=== PATIENT | female | born 2000 | race Caucasian/White ===

== ENCOUNTER 2022-02-25 14:30 | Emergency (ER) | payer BC, SELFPAY ==
[2022-02-25] VITALS (15 sets, daily range): BP systolic 99–133; BP diastolic 51–91; PULSE 56–78; RESP 16; TEMP 36.7; O2SAT 97–100; BMI 25.7
--- NOTE | 2022-02-25 | CRLHL7_ITS ---
For Patients: As a result of the Century Cures Act, medical imaging exams and procedure reports are released immediately into your electronic medical record. You may view this report before your referring provider. If you have questions, please contact your health care provider. INDICATION: Trauma, headache, visual changes TECHNIQUE: CT head without contrast. COMPARISON: Type FINDINGS: CSF spaces: Within normal limits for age. Brain parenchyma: The gao-white differentiation is normal. No sign of mass, hemorrhage, or midline shift. Skull base and calvarium: The visualized paranasal sinuses and mastoid air cells demonstrate no acute or significant findings. The visualized orbits are grossly unremarkable. No skull fractures. IMPRESSION: Unremarkable noncontrast head CT. Dictated by Toribio Watson MD @ 02/25/2022 3:12:54 PM Please note that all CT scans at this facility use dose modulation, iterative reconstruction, and/or weight-based dosing when appropriate to reduce radiation dose to as low as reasonably achievable. Dictated by: Toribio Watson MD @ 02/25/2022 15:13:00 (Electronically Signed)
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
[2022-02-25 15:28] LABS: Eosinophils Absolute Auto 0.14 K/uL (0.00-0.50); Eosinophils Percent Auto 2.5 % (0.0-7.0); Hematocrit 41.1 % (33.0-51.0); Hemoglobin* 14.2 gm/dL (12.0-16.0); Immature Granulocytes Abs Auto 0.01 K/uL (0.00-0.30); Immature Granulocytes Pct Auto 0.2 %; Lymphocytes Absolute Auto 1.81 K/uL (0.90-2.90); Lymphocytes Percent Auto 32.6 % (20-44); Mean Corpuscular HGB Conc 35 gm/dL (32-36); Mean Corpuscular Hemoglobin 31 pg (26-34); Mean Corpuscular Volume 89 fL (80-100); Monocytes Percent Auto 10.1 % (0.0-11.0); Neutrophils Absolute Auto 3.03 K/uL (1.7-7.0); Neutrophils Percent Auto 54.6 % (42.0-72.0); Platelet Count* 304 K/uL (140-440); RDW Coefficient of Variation % 12.3 % (11.5-15.5); Red Blood Count 4.64 m/uL (4.00-5.20); White Blood Count* 5.55 K/uL (4.50-11.00)
[2022-02-25 15:30] LABS: Slide Review Reflex No
[2022-02-25 15:38] LABS: Chloride* 108 mmol/L (96-114)
[2022-02-25 15:39] LABS: Potassium* 3.9 mmol/L (3.6-5.1); Sodium* 138 mmol/L (135-149)
[2022-02-25 15:41] LABS: Creatinine* 0.6 mg/dL (0.5-1.5); Estimated Glomerular Filt Rate 130 ml/min
[2022-02-25 15:42] LABS: Blood Urea Nitrogen* 9 mg/dL (5-24); Carbon Dioxide* 24 mmol/L (20-32); Glucose* 81 mg/dL (60-115)
[2022-02-25 17:18] LABS: INR 1.04 (0.91-1.10); Prothrombin Time 14.2 Seconds
== END 2022-02-25 18:13 | disposition home or self-care (01) ==
PROVIDERS: Emergency Provider Emergency Medicine Emergency Medical Services; PCP Family Medicine
DX: S06.0X0A Concussion without loss of consciousness, initial encounter (principal); H57.04 Mydriasis; W51.XXXA Accidental striking against or bumped into by another person, initial encounter
CPT/HCPCS: 36415; 70450; 80048; 85025; 85610; 99284; 99285

== ENCOUNTER 2022-06-20 20:51 | Emergency (ER) | payer SELFPAY ==
[2022-06-20 20:57] VITALS: BP 117/69; PULSE 84; RESP 16; TEMP 37.2; O2SAT 97; BMI 25.7
--- NOTE | 2022-06-20 21:11 | ED_ITS ---
HPI - Animal Bite General Chief Complaint: Animal Bite Stated Complaint: Dog bite History of Present Illness HPI narrative: This 21-year-old female comes in for evaluation of a dog bite that occurred just prior to arrival. She states that she was just walking past a property when the dog busted out of its place and came to attack her. She has a small laceration on her right little finger and a larger abrasion that is not a full-thickness injury on her left buttock. She states that she is unsure of her own tetanus status and wishes to have a vaccination today. She did make a report to the police who are researching regarding the vaccine status of the dog involved. Related Data Previous Rx's Medication Instructions Recorded ketorolac 10 mg tablet 10 mg PO TID 5 days #15 tabs 02/25/22 Allergies Allergy/AdvReac Type Severity Reaction Status Date / Time No Known Drug Allergies Allergy Verified 06/20/22 21:01 Review of Systems 2 Status of ROS: Reports: 10 or more systems reviewed and unremarkable except as noted in History and below Narrative: Constitutional: No fevers, no weight gain or loss. Eyes: No discharge. No vision changes. HENT: No congestion, no sore throat, no ear pain. Cardiovascular: No chest pain, no palpitations. Respiratory: No shortness of breath, no wheezes, no cough. Gastrointestinal: No abdominal pain, no vomiting, no diarrhea. Genitourinary: No dysuria, no hematuria. Musculoskeletal: Normal range of motion. Skin: No rashes, no pruritis. Dog bite injuries as described above. Neurological: No dizziness, weakness, sensory change, speech change. Endo/Heme/Allergies: No bruising or bleeding. No polydipsia. Pysch: no suicidality, no anxiety, no insomnia. All other systems reviewed and are negative. [facility] Social History Smoking Status: Current every day smoker What tobacco products do you use: cigarettes Do you use any of these nicotine containing products: Vaping Products Second hand tobacco smoke exposure: No How often do you have a drink containing alcohol: never How often do you have six or more drinks on one occasion: Never AUDIT-C Alcohol total score: 0 Non-prescribed substance use: denies use service: No Exam Narrative: Exam Narrative: This 21-year-old female comes in with injuries from a dog bite. Her wounds on her left buttock are not full thickness and there is no repair that is indicated. She does have a small laceration on her right middle finger that is full thickness but again does not need any repair. These wounds were cleansed and bandaged. She did receive a tetanus vaccination. I did prescribe a short course of Keflex out of caution for possible secondary infection from this bite. Regarding the dog's vaccination status I advised the patient to acquire information through the police as she is already made a report. If the dog is not vaccinated it can be tested or observed regarding rabies. If there is uncertainty in this regard she understands that she can return here for rabies immunoglobulin and vaccination. Const: Vital Signs, click to edit/add: Vital Signs - 24 hr 06/20/22 20:57 Temperature 98.9 F Pulse Rate [Pulse Oximeter] 84 Respiratory Rate 16 Blood Pressure [Ri ght Upper Arm] 117/69 Pulse Oximetry 97 Oxygen Delivery Me thod Room Air Course Vital Signs Vital signs: Initial Vital Signs Temperature 98.9 F 06/20/22 20:57 Temperature Source Temporal Artery Scan 06/20/22 20:57 Pulse Rate 84 06/20/22 20:57 Pulse Rhythm Regular 06/20/22 20:57 Pulse Strength 3+ Normal 06/20/22 20:57 Respiratory Rate 16 06/20/22 20:57 Blood Pressure 117/69 06/20/22 20:57 Blood Pressure Mean 85 06/20/22 20:57 Blood Pressure Position Sitting 06/20/22 20:57 Pulse Oximetry 97 06/20/22 20:57 Oxygen Delivery Method Room Air 06/20/22 20:57 Vital Signs Temperature 98.9 F 06/20/22 20:57 Pulse Rate 84 06/20/22 20:57 Respiratory Rate 16 06/20/22 20:57 Blood Pressure 117/69 06/20/22 20:57 Pulse Oximetry 97 06/20/22 20:57 Oxygen Delivery Method Room Air 06/20/22 20:57 Temperature 98.9 F 06/20/22 20:57 Pulse Rate 84 06/20/22 20:57 Respiratory Rate 16 06/20/22 20:57 Blood Pressure 117/69 06/20/22 20:57 Pulse Oximetry 97 06/20/22 20:57 Oxygen Delivery Method Room Air 06/20/22 20:57 Discharge Plan Discharge Clinical Impression: Dog bite Patient Disposition: Home, Self-Care Condition: Stable Additional Instructions: Take medication as prescribed. Acquire information from police regarding the dogs vaccinations status and proceed accordingly. Return if worsening or if in need of rabies treatments. Prescriptions: No Action ketorolac 10 mg tablet 10 mg PO TID 5 Days Qty: 15 0RF Follow Up/Referrals: Tahir Ronquillo MD [Primary Care Provider] - Stand Alone Forms: [employer] Info Instructions
[2022-06-20] MEDS: TETANUS/DIPHTH/PERTUSSIS 0.5 ML SYRINGE IM (21:38)
== END 2022-06-20 21:51 | disposition home or self-care (01) ==
LOC: ED 21:29
PROVIDERS: Emergency Provider Emergency Medicine Emergency Medical Services; PCP Family Medicine
DX: S61.212A Laceration without foreign body of right middle finger without damage to nail, initial encounter (principal); W54.0XXA Bitten by dog, initial encounter
CPT/HCPCS: 90471; 90715; 99283; 99284

== ENCOUNTER 2022-11-07 21:37 | Emergency (ER) | payer BC, SELFPAY ==
[2022-11-07 21:43] VITALS: BP 134/96; PULSE 89; RESP 16; TEMP 36.7; O2SAT 99
[2022-11-07] MEDS: ONDANSETRON 2 MG/ML inj 4 MG IVP (22:35)
[2022-11-07] MEDS: KETOROLAC 30 MG/ML inj IVP (22:35)
[2022-11-07] MEDS: METHYLPREDNISOLONE SOD SUCC 62.5 MG/ML (125) 125 MG IM (22:35)
[2022-11-07] MEDS: LIDOCAINE 1 % PF 30 ML INJECTION (22:36)
[2022-11-07] MEDS: diphenhydrAMINE 50 MG/ML inj IVP (22:36)
[2022-11-07 22:47] VITALS: PULSE 78; RESP 16; O2SAT 98
--- NOTE | 2022-11-07 22:51 | ED_ITS ---
HPI - Headache General Chief Complaint: Headache/Migraine Stated Complaint: headache Time Seen by Provider: 11/07/22 21:50 History of Present Illness HPI Narrative: This 21-year-old female comes in reporting tension and migraine-type headache. She states that she has been having headaches like this but not as intense as it is today. These have been present since last January when she had a head injury. She was evaluated in the emergency department and also had a follow-up appointment with a neurologist regarding this. She does have continued recurrent headaches and states that they typically start in the occipital region and in the posterior aspect of her neck and then extend forward and causes some visual changes at times. She does have sensitivity to light. She does not report any nausea or vomiting. She has been taking atad-svw-hzlttvq medicines on occasion but does not have any other prescription medicines that she routinely takes. Related Data Previous Rx's Medication Instructions Recorded ketorolac 10 mg tablet 10 mg PO TID 5 days #15 tabs 02/25/22 amitriptyline 10 mg tablet 10 mg PO QHS #30 tabs 11/07/22 Allergies Allergy/AdvReac Type Severity Reaction Status Date / Time No Known Drug Allergies Allergy Verified 11/07/22 21:49 Review of Systems Status of ROS: Reports: 10 or more systems reviewed and unremarkable except as noted in History and below Narrative: Constitutional: No fevers, no weight gain or loss. Eyes: No discharge. Blurry vision at times. Sensitivity to light. HENT: No congestion, no sore throat, no ear pain. Cardiovascular: No chest pain, no palpitations. Respiratory: No shortness of breath, no wheezes, no cough. Gastrointestinal: No abdominal pain, no vomiting, no diarrhea. Genitourinary: No dysuria, no hematuria. Musculoskeletal: Normal range of motion. Skin: No rashes, no pruritis. Neurological: No dizziness, weakness, sensory change, speech change. Endo/Heme/Allergies: No bruising or bleeding. No polydipsia. Pysch: no suicidality, no anxiety, no insomnia. All other systems reviewed and are negative. [facility] Social History Smoking Status: Current every day smoker What tobacco products do you use: cigarettes Do you use any of these nicotine containing products: Vaping Products Second hand tobacco smoke exposure: No How often do you have a drink containing alcohol: never How often do you have six or more drinks on one occasion: Never AUDIT-C Alcohol total score: 0 Non-prescribed substance use: denies use service: No Exam Narrative: Exam Narrative: Constitutional: Well-developed, well-nourished, no acute distress. HEENT: Normocephalic, atraumatic. Neck: Normal range of motion. Nontender. Supple. Heart: Regular. No murmurs. Normal rate. Intact distal pulses. Lungs: Clear to auscultation. No chest discomfort. No wheezes, rhonchi, or rales. Abdomen: Normal bowel sounds. Nontender. No rebound tenderness. Genitalia: Deferred. Back: No midline tenderness. Normal range of motion. Extremities: Normal range of motion. No injury. Skin: Intact. No rash. Warm. No erythema or pallor. Neurologic: No altered sensation. No weakness. Alert and oriented. Psychiatric: No suicidality. No anxiety or depression. No insomnia. Nursing notes and vitals signs are reviewed. Const: Vital Signs, click to edit/add: Vital Signs - 24 hr 11/07/22 21:43 11/07/22 22:47 Temperature 98.1 F Pulse Rate [Pulse Oximeter] 89 78 Respiratory Rate 16 16 Blood Pressure [Ri t Upper Arm] 134/96 H Pulse Oximetry 99 98 Oxygen Delivery Me thod Room Air Room Air Course Vital Signs Vital signs: Initial Vital Signs Temperature 98.1 F 11/07/22 21:43 Temperature Source Temporal Artery Scan 11/07/22 21:43 Pulse Rate 89 11/07/22 21:43 Pulse Rhythm Regular 11/07/22 21:43 Pulse Strength 3+ Normal 11/07/22 21:43 Respiratory Rate 16 11/07/22 21:43 Blood Pressure 134/96 H 11/07/22 21:43 Blood Pressure Mean 108 H 11/07/22 21:43 Blood Pressure Position Sitting 11/07/22 21:43 Pulse Oximetry 99 11/07/22 21:43 Oxygen Delivery Method Room Air 11/07/22 21:43 Vital Signs Temperature 98.1 F 11/07/22 21:43 Pulse Rate 89 11/07/22 21:43 Respiratory Rate 16 11/07/22 21:43 Blood Pressure 134/96 H 11/07/22 21:43 Pulse Oximetry 99 11/07/22 21:43 Oxygen Delivery Method Room Air 11/07/22 21:43 Temperature 98.1 F 11/07/22 21:43 Pulse Rate 78 11/07/22 22:47 Respiratory Rate 16 11/07/22 22:47 Blood Pressure 134/96 H 11/07/22 21:43 Pulse Oximetry 98 11/07/22 22:47 Oxygen Delivery Method Room Air 11/07/22 22:47 MDM - Headache MDM Narrative Medical decision making narrative: This patient comes in with headache that is typical for her but more intense in its severity. An IV was established where she received Toradol 30 mg, Benadryl 50 mg, and Zofran 4 mg. I also stated that she may benefit from a therapeutic injection posterior aspect of her neck on either side of the nuchal ligament overlying the occipital nerves. She is having recurrent tension type headaches that emanate from this area. She is agreeable to this plan. She did receive injection of total of 4 mL of 1% lidocaine mixed with 2 mL of Solu-Medrol 125 mg. This was but equally on either side of the nuchal ligament overlying the occipital nerve. Patient tolerated this procedure well. The medications given by IV did not seem to help her headache much. She was then given ketamine 20 mg infused slowly over 20-30 minutes. The patient states that she wishes to return home after this infusion regardless of outcome. I did prescribe amitriptyline as a small dose to be considered for use as a preventative for headaches. Discharge Plan Discharge Clinical Impression: Migraine, Tension headache Patient Disposition: Home w/ Parent or Adult Condition: Stable Additional Instructions: Take medication as prescribed. Follow up with MD or return if worsening symptoms happen. Prescriptions: New amitriptyline 10 mg tablet 10 mg PO QHS Qty: 30 2RF No Action ketorolac 10 mg tablet 10 mg PO TID 5 Days Qty: 15 0RF Follow Up/Referrals: Tahir Ronquillo MD [Primary Care Provider] - Stand Alone Forms: [email or web address] Info Instructions
[2022-11-07] MEDS: KETAMINE HCL 20 MG in 0.9 % SODIUM CHLORIDE 100 ml 100 ML 300.6 MG IVPB (23:44)
[2022-11-07 23:52] VITALS: BP 106/74; PULSE 60; RESP 16; O2SAT 97
[2022-11-07 23:53] VITALS: O2SAT 96
[2022-11-08] VITALS: O2SAT 97
[2022-11-08 00:02] VITALS: BP 122/72; PULSE 76; RESP 16; O2SAT 97
== END 2022-11-08 00:15 | disposition home or self-care (01) ==
PROVIDERS: Emergency Provider Emergency Medicine Emergency Medical Services; PCP Family Medicine
DX: G43.909 Migraine, unspecified, not intractable, without status migrainosus (principal)
CPT/HCPCS: 96365; 96375; 99283; 99284; J1200; J1885; J2001; J2405; J2930; J3490

== ENCOUNTER 2022-11-13 00:45 | Emergency (ER) | payer BC, SELFPAY ==
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
[2022-11-13 00:52] VITALS: BP 107/66; PULSE 65; RESP 16; TEMP 36.7; O2SAT 98; BMI 25.7
[2022-11-13] MEDS: diphenhydrAMINE 50 MG/ML inj 25 MG IVP (01:23)
[2022-11-13] MEDS: 0.9 % SODIUM CHLORIDE 500 ML 500 ML IV (01:23)
[2022-11-13] MEDS: KETOROLAC 15 MG/ML inj IVP (01:23)
[2022-11-13] MEDS: dexAMETHasone 10 MG/ML inj IVP (01:23)
[2022-11-13] MEDS: PROCHLORPERAZINE 5 MG/ML VIAL 10 MG IV (01:23)
--- NOTE | 2022-11-13 01:34 | ED.NURSE ---
patient requested to discharge home, MD updated, dc orders placed. iv removed tip intact, pt discharged.
== END 2022-11-13 01:37 | disposition home or self-care (01) ==
PROVIDERS: Emergency Provider Family Medicine; PCP Family Medicine
DX: G44.319 Acute post-traumatic headache, not intractable (principal); F07.81 Postconcussional syndrome
CPT/HCPCS: 96374; 96375; 99284; J0780; J1100; J1200; J1885; J7120

== ENCOUNTER 2023-02-15 10:14 | Emergency (ER) | payer BC, SELFPAY ==
[2023-02-15 10:40] VITALS: BP 116/74; PULSE 69; RESP 18; TEMP 36.8; O2SAT 100; BMI 25.7
--- NOTE | 2023-02-15 11:18 | CRLHL7_ITS ---
For Patients: As a result of the Cures Act, medical imaging exams and procedure reports are released immediately into your electronic medical record. You may view this report before your referring provider. If you have questions, please contact your health care provider. INDICATION: Pain. FINDINGS: AP view of the pelvis and AP and lateral views of the right hip were obtained. There is no acute fracture or dislocation. The joint space compartments are maintained. IMPRESSION: No acute bone abnormality. Dictated by Elmo Topete MD @ 02/15/2023 12:19:50 PM (Electronically Signed)
--- NOTE | 2023-02-15 11:58 | ED_ITS ---
HPI - General Adult General Date Seen: 02/15/23 Chief complaint: Hip Injury/Pain Stated complaint: pain Time Seen by Provider: 02/15/23 11:10 Source: patient Mode of arrival: ambulatory Limitations: no limitations History of Present Illness HPI narrative: Patient is a 22-year-old young woman who reports pain in the right hip since about 3:00 a.m.. 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 She tells me that her hip ?dislocates all the time, she feels that that is what happened and then it popped back in. She has had a history of shoulder dislocations which have required reduction. It does not sound like she has ever required reduction of the hip although she said that once when she was young she was taken to the ER for hip dislocation but then it reduced on its own. She says her joints are loose in general. She reports previous MRIs of the hip and tells me that she has had ?tears in the hip. Since overnight when this happened pain has gotten more severe to the point that it is difficult for her to bear weight. She reports pain in the lateral hip, front and inner groin. She has not ever had an y kind of workup for hypermobility or connective tissue disorders, at least that she is aware of. Related Data Previous Rx's Medication Instructions Recorded ketorolac 10 mg tablet 10 mg PO TID 5 days #15 tabs 02/25/22 amitriptyline 10 mg tablet 10 mg PO QHS #30 tabs 11/07/22 gabapentin 300 mg capsule 300 mg PO BID #60 caps 11/13/22 Allergies Allergy/AdvReac Type Severity Reaction Status Date / Time No Known Drug Allergies Allergy Verified 02/15/23 10:50 Review of Systems Status of ROS: Reports: 6 or more systems reviewed and unremarkable except as noted in History and below PFSH PFS Social History Smoking Status: Current every day smoker What tobacco products do you use: cigarettes Do you use any of these nicotine containing products: Vaping Products Second hand tobacco smoke exposure: No How often do you have a drink containing alcohol: never How often do you have six or more drinks on one occasion: Never AUDIT-C Alcohol total score: 0 Non-prescribed substance use: denies use service: No Exam Narrative: Exam Narrative: Vital signs as noted above. In general, an alert, nontoxic young woman. Head: Normocephalic, atraumatic. Eyes: Pupils are equal reactive. Extraocular movements are full. Conjunctivae are normal. ENT: Mucous membranes are moist. Abdomen: Soft and nontender. No organomegaly. Extremities: Well perfused. No edema. No calf tenderness. Pulses intact. She keeps the right hip slightly internally rotated. She has a little bit of pain with passive range of motion although less though them with active range of motion. Range of motion is full. Distal CMS is normal. The right hip is normal appearance, nontender without erythema or edema. Neurologic: Patient is alert and oriented to person and place. Speech is fluent. Face is symmetric. Moves all extremities equally. Affect: Flat. Skin: Warm and dry. Well perfused. Const: Vital Signs, click to edit/add: Vital Signs - 24 hr 02/15/23 10:40 Temperature 98.3 F Pulse Rate [Pulse Oximeter] 69 Respiratory Rate 18 Blood Pressure [Ri ght Upper Arm] 116/74 Pulse Oximetry 100 Oxygen Delivery Me thod Room Air Documenting provider has reviewed patient's vital signs: yes Course Course ED Course: I did an x-ray of the right hip, by my review this looks normal, radiology read is pending. Unclear what her underlying history is with this joint, labral tear is a possibility, perhaps she has enough joint laxity that she is subluxing or perhaps even dislocating if she has a true connective tissue disorder. Strongly encouraged her to follow-up with orthopedics for further evaluation of this given the chronicity of problems with joints. In the meantime, I have recommended that she use ibuprofen 400 mg plus Tylenol 1000 mg 3 times daily with food for the next few days. I gave her oxycodone # 8 if needed for more significant pain. Final radiology read of hip film is negative. Vital Signs Vital signs: Initial Vital Signs Temperature 98.3 F 02/15/23 10:40 Temperature Source Temporal Artery Scan 02/15/23 10:40 Pulse Rate 69 02/15/23 10:40 Pulse Rhythm Regular 02/15/23 10:40 Respiratory Rate 18 02/15/23 10:40 Blood Pressure 116/74 02/15/23 10:40 Blood Pressure Mean 88 02/15/23 10:40 Pulse Oximetry 100 02/15/23 10:40 Oxygen Delivery Method Room Air 02/15/23 10:40 Vital Signs Temperature 98.3 F 02/15/23 10:40 Pulse Rate 69 02/15/23 10:40 Respiratory Rate 18 02/15/23 10:40 Blood Pressure 116/74 02/15/23 10:40 Pulse Oximetry 100 02/15/23 10:40 Oxygen Delivery Method Room Air 02/15/23 10:40 Temperature 98.3 F 02/15/23 10:40 Pulse Rate 69 02/15/23 10:40 Respiratory Rate 18 02/15/23 10:40 Blood Pressure 116/74 02/15/23 10:40 Pulse Oximetry 100 02/15/23 10:40 Oxygen Delivery Method Room Air 02/15/23 10:40 Discharge Plan Discharge Clinical Impression: Hip pain, right Patient Disposition: Home, Self-Care Condition: Stable Instructions: Hip Pain (ED) Additional Instructions: Ibuprofen 400 mg plus Tylenol 1000 mg 3 times daily for the next couple of days. Take with food. Oxycodone if needed for severe uncontrolled pain. Crutches if needed for difficulty weight-bearing. Given your long history of joint problems and possible laxity, I would recommend orthopedic follow-up for further evaluation of your hip.[phone]. Activity Level: Activity as Tolerated Discharge Diet: Regular Prescriptions: No Action ketorolac 10 mg tablet 10 mg PO TID 5 Days Qty: 15 0RF gabapentin 300 mg capsule 300 mg PO BID Qty: 60 2RF amitriptyline 10 mg tablet 10 mg PO QHS Qty: 30 2RF Follow Up/Referrals: Tahir Ronquillo MD [Primary Care Provider] - Stand Alone Forms: [employer] Info Instructions
== END 2023-02-15 12:26 | disposition home or self-care (01) ==
PROVIDERS: Emergency Provider Emergency Medicine; PCP Family Medicine
DX: M25.551 Pain in right hip (principal)
CPT/HCPCS: 73502; 99283; 99284

== ENCOUNTER 2023-07-15 18:41 | Emergency (ER) | payer BC, SELFPAY ==
[2023-07-15 18:57] VITALS: BP 132/72; PULSE 78; RESP 16; TEMP 37.1; O2SAT 99; BMI 24.0
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
--- NOTE | 2023-07-15 19:24 | XR_ITS ---
Patient: LUZ PARKER Facility:?[facility] Patient ID:?[id number] Site Patient ID:?[id number]. Site :?1999 Study:?XRay-Chest PORTABLE-07/15/2023 7:54:03 PM Ordering Physician:?DR. PEREA Final Report: INDICATION: Chest pain. TECHNIQUE: Chest radiograph, 1 view. COMPARISON: None. FINDINGS: Cardiovascular/Mediastinum: Normal heart size. Unremarkable. Lungs: No focal consolidation. Airways: Trachea remains midline. Pleura: No pleural effusions or pneumothorax. Bones: No acute osseous abnormalities. Upper abdomen: Unremarkable. IMPRESSION: No acute cardiopulmonary process. Dictated by John Paul Thornton MD @ 07/15/2023 8:18:27 PM Signed by:?John Paul Thornton MD @07/15/2023 8:18:27 PM (Electronic Signature)
--- OUTSIDE RECORDS SUMMARY | 2023-07-15 19:37 | XMS_ITS | Clinical Summary ---
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 [phone] Tahir Ronquillo MD Primary Care Provider [phone] Allergies Active Allergy Reactions Criticality Noted Date Comments Stephenson Blisters Medium 05/17/2023 Oral blisters Coconut (Cocos Nucifera) Rash Medium 02/02/2014 Rash on dermis of throat after eating coconut Grass Rash Low 02/02/2014 Pollen Extract Other (See Comments) 02/02/2014 Allergic rhinnitis Tomato 05/20/2023 Trees Other (See Comments) 02/02/2014 Allergic rhinitis Medications Medication Sig Dispensed Refills Start Date End Date Status amphetamine-dextroam phetamine (ADDERALL XR) 10 MG 24 hr capsule Take 10 mg by mouth 2 times daily as needed (attention/when working) Takes in morning and midafternoon, mostly takes on days she works. Does not take everyday. 03/29/2023 Active drospirenone-ethinyl estradiol (MARY) 3-0.02 MG tablet Take 1 tablet by mouth daily 03/18/2023 Active traZODone (DESYREL) 50 MG tablet Take 50 mg by mouth nightly as needed for sleep 02/24/2023 Active lamoTRIgine (LAMICTAL) 25 MG tabletIndications:Ma aneesh depressive disorder, recurrent severe without psychotic features (H) Take 1 tablet (25 mg) by mouth daily After 2 weeks increase dose to 1 tablet (25 mg) twice daily 50 tablet 05/20/2023 Active Active Problems Problem Noted Date Diagnosed Date Major depressive disorder, r ecurrent severe without psychotic features 05/17/2023 Suicide attempt by drug ingestion 01/25/2016 Hordeolum internum of left upper eyelid 07/27/19 15 Suicide attempt 07/18/2014 Overdose of drug 07/17/2014 Suicidal ideation 05/24/2014 Mood disorder (H24) 02/02/2014 Suicide 02/01/2014 Poisoning by drug 01/31/2014 Overview: Problem list name updated by automated process. Provider to review Ingestion of substance 01/31/2014 Aggression 12/29/2012 Irritable 12/29/2012 Viral gastroenteritis 04/09/2011 PTSD (post-traumatic stress disorder) 04/08/2011 Reactive attachment disorder 04/08/2011 Episodic mood disorder (H24) 04/08/2011 Overview: Problem list name updated by automated process. Provider to review Adult learning disorder 04/08/2011 Overview: (Problem list name updated by automated process. Provider to review and confirm.) Encounters Date Type Department Care Team Description 05/17/2023 12:53 PM HYDROGEOLOGIST - 05/20/2023 11:48 AM [facility] Hospital Encounter [facility] [address] [place] [address] [place] [id number] Maryjane Bar MD Simon, John, MD John, Florence Simon, MD Parkinson, Daniel Y, MD Major depressive disorder, recurrent severe without psychotic features (H) (Primary Dx) Discharge Disposition: Home or Self Care 05/17/2023 Telephone [facility] [address] [facility] [place] [phone] Generic, Behavioral MD Nelson 05/17/2023 Telephone [facility] [address] [facility] [phone] Generic, Behavioral MD Nelson MH/CD Inpatient 05/16/2023 10:46 PM HYDROGEOLOGIST - 05/17/2023 12:25 PM HYDROGEOLOGIST Emergency [facility] Emergency Dept [address] [place] [address] Tiarra Meléndez, Filemon Medrano MD Intentional drug overdose, initial encounter (H); Suicide attempt (H) [facility]charge [facility] 05/16/2023 Travel from Last 3 Months Immunizations Name Administration Dates Next Due Comvax (HIB/HepB) 03/12/2001 DTAP (<7y) 01/16/2005, 1,08/20/2000,06/20/2000, 04/15/2000,02/12/2000 HEPA 11/10/2014 HPV 11/10/2014 HepB 04/15/2000,02/12/2000 Influenza (IIV3) PF 04/08/2011 MMR 01/16/2005,12/31/2000 Meningococcal ACWY (Menactra??) 07/09/2013 Pneumococcal (PCV 7) 06/22/2001,06/20/2000,04/15,02/12/2000 Poliovirus, inactivated (IPV) 01/16/2005, 002,04/15/2000,02/12/2000 TDAP Vaccine (Adacel) 11/14/2012 Varicella 11/14/2012,12/31/2000 Social History Tobacco Use Types Packs/Day Years Used Date Smoking Tobacco: Never Smokeless Tobacco: Never Alcohol Use Standard Drinks/Week Comments No 0 (1 standard drink = 0.6 oz pur e alcohol) Adolescent Education Answer Date Record ed Getting School Help Needed Not on file 12/21 Sex and Gender Information Value Date Recorded Sex Assigned at Not on file Gender Identity Not on file Sexual Orientation Not on file Last Filed Vital Signs Vital Sign Reading Time Taken Comments Blood Pressure 114/64 05/20/2023 8:00 AM HYDROGEOLOGIST Pulse 76 05/20/2023 8:00 AM HYDROGEOLOGIST Temperature 36.6 ??C (97.8 ??F) 05/20/2023 8:00 AM CS T Respiratory Rate 16 05/20/2023 8:00 AM HYDROGEOLOGIST Oxygen Saturation 100% 05/20/2023 8:00 AM HYDROGEOLOGIST Inhaled Oxygen Concentration - - Weight 62 kg (136 lb 11.2 oz) 05/17/2023 1:00 PM HYDROGEOLOGIST Height 162.6 cm (5' 4) 05/17/2023 1:00 PM HYDROGEOLOGIST Body Mass Index 23.46 05/17/2023 1:00 PM HYDROGEOLOGIST Plan of Treatment Health Maintenance Due Date Last Done Comments ANNUAL REVIEW OF HM ORDERS 1999 DEPRESSION ACTION PLAN 1999 PHQ-9 1999 HEPATITIS C SCREENING 12/10/2017 PAP 12/10/2020 COVID-19 Vaccine ( season) 2022 INFLUENZA VACCINE (#1) 2022 2, 04/08/2011, 04/08/2011, Additional history exists CHLAMYDIA SCREENING 12/25/2022 12/25/2021, 12/29/2012, 12/29/2012, Additional history exists YEARLY PREVENTIVE VISIT 04/26/2023 04/26/2022, 10/05 ADVANCE CARE PLANNING 12/03/2026 12/03/2021 DTAP/TDAP/TD IMMUNIZATION (8 - Td or Tdap) 06/20/2032 06/20/2022, 11/14/2012, 01/16/2005, Additional history exists HEPATITIS B IMMUNIZATION Completed 001, 03/12/2001, 04/15/2000, Additional history exists Pneumococcal Vaccine: Pediatrics (0 to 5 Years) and At-Risk Patients (6 to 64 Years) Aged Out 06/22/2001, 06/20/2000, 04/15/2000, Additional history exists No longer eligible based on patient's age to complete this topic IPV IMMUNIZATION Completed 01/16/2005, , 04/15/2000, Additional history exists HIV SCREENING Completed 12/30/2012 MENINGITIS IMMUNIZATION Aged Out 07/09/2013, 07/09 No longer eligible based on patient's age to complete this topic HPV IMMUNIZATION Completed 04/26/2022, , 11/10/2014, Additional history exists RSV MONOCLONAL ANTIBODY Aged Out No l onger eligible based on patient's age to complete this topic Procedures Procedure Name Priority Date/Time Associated Diagnosis Comments URINE DRUG SCREEN STAT 05/16/2023 11: 14 PM HYDROGEOLOGIST URINE DRUG SCREEN PANEL STAT 05/16/2023 11:14 PM HYDROGEOLOGIST EKG 12-LEAD, TRACING ONLY STAT 05/16/2023 11:03 PM HYDROGEOLOGIST CBC WITH PLATELETS & DIFFERENTIAL STAT 05/16/2023 11:01 PM HYDROGEOLOGIST CBC WITH PLATELETS AND DIFFERENTIAL STAT 05/16/2023 11:01 PM HYDROGEOLOGIST SALICYLATE LEVEL STAT 05/16/2023 11:0 1 PM HYDROGEOLOGIST ACETAMINOPHEN LEVEL STAT 05/16/2023 1 1:01 PM HYDROGEOLOGIST ETHYL ALCOHOL LEVEL STAT 05/16/2023 1 1:01 PM HYDROGEOLOGIST MAGNESIUM STAT 05/16/2023 11:01 PM HYDROGEOLOGIST HCG QUALITATIVE STAT 05/16/2023 11:01 PM HYDROGEOLOGIST COMPREHENSIVE METABOLIC PANEL STAT 05/16/2023 11:01 PM HYDROGEOLOGIST HIV 1 AND 2 ANTIBODY (QUEST) Routine 12/30/2012 6:35 AM CDT [facility] ELECTROCARDIOGRAM, COMP W/READ Routine 06/10/2000 Preop Exam Other Specified from Last 3 Months or Most Recently Relevant to Health Maintenance Results * Urine Drug Screen Panel (05/16/2023 11:14 PM HYDROGEOLOGIST) Amphetamines Urine Screen Negative Screen Negative 05/16/2023 11:45 PM HYDROGEOLOGIST [facility] Comment:Cutoff for a negativ e amphetamine is less than 500 ng/mL. Barbituates Urine Screen Negative Screen Negative 05/16/2023 11:45 PM HYDROGEOLOGIST [facility] Comment:Cutoff for a negativ e barbiturate is less than 200 ng/mL. Benzodiazepine Urine Screen Negative Screen Negative 05/16/2023 11:45 PM HYDROGEOLOGIST [facility] Comment:Cutoff for a negativ e benzodiazepine is less than 100 ng/mL. Cannabinoids Urine Screen Negative Screen Negative 05/16/2023 11:45 PM HYDROGEOLOGIST [facility] Comment:Cutoff for a negativ e cannabinoid is less than 50 ng/mL. Cocaine Urine Screen Negative Screen Negative 05/16/2023 11:45 PM HYDROGEOLOGIST LABORATORY Comment:Cutoff for a negativ e cocaine is less than 300 ng/mL. Fentanyl Qual Urine Screen Negative Screen Negative 05/16/2023 11:45 PM HYDROGEOLOGIST LABORATORY Comment:Cutoff for negative fentanyl is less than 5 ng/mL. Opiates Urine Screen Negative Screen Negative 05/16/2023 11:45 PM HYDROGEOLOGIST LABORATORY Comment:Cutoff for a negativ e opiate is less than 300 ng/mL. PCP Urine Screen Negative Screen Negative 05/16/2023 11:45 PM HYDROGEOLOGIST LABORATORY Comment:Cutoff for a negativ e PCP is less than 25 ng/mL. Urine MID-STREAM URINE SPECIMEN / Unknown Non-blood Collection / Unknown 05/16/2023 11:14 PM HYDROGEOLOGIST 05/16/2023 11:22 PM HYDROGEOLOGIST Tiarra Meléndez DO LAB - URINE ORDERA BLES [facility] Acute Care Lab [address] Lab (1st floor, no room number) [place] [address], [facility] [place] [phone] * EKG 12 lead (05/16/2023 11:03 PM HYDROGEOLOGIST) Systolic Blood Pressure mmHg RADIOLOGY RESULTS Diastolic Blood Pressure mmHg RADIOLOGY RESULTS Ventricular Rate 70 BPM RAD IOLOGY RESULTS Atrial Rate 70 BPM RADIOLOG Y RESULTS MA Interval 134 ms RADIOLOG Y RESULTS QRS Duration 88 ms RADIOLO GY RESULTS QT 418 ms RADIOLOGY RESULTS QTc 451 ms RADIOLOGY RESULTS P [place] 43 degrees RADIOLOGY RESULTS R AXIS 68 degrees RADIOLOGY RESULTS T [place] 44 degrees RADIOLOGY RESULTS Interpretation ECG Sinus rhythm Normal ECG When compared with ECG of 01-DEC-2021 07:17, No significant change was found Confirmed by - EMERGENCY ROOM, PHYSICIAN ([id number]), video news editor BO RAMIREZ ([id number]) on 05/18/2023 11:45:54 AM RADIOLOGY RESULTS 05/16/2023 11:0 3 PM HYDROGEOLOGIST 05/18/2023 11:45 AM HYDROGEOLOGIST Tiarra Meléndez DO ECG ORDERABLES RADIOLOGY RESULTS * CBC with platelets and differential (05/16/2023 11:01 PM HYDROGEOLOGIST) WBC Count 6.0 4.0 - 11.0 10e3/uL 05/16/2023 11:13 PM HYDROGEOLOGIST [facility] RBC Count 4.62 3.80 - 5.20 10e6/uL 05/16/2023 11:13 PM HYDROGEOLOGIST [facility] Hemoglobin 14.4 11.7 - 15.7 g/dL 05/16/2023 11:13 PM HYDROGEOLOGIST [facility] Hematocrit 41.5 35.0 - 47.0 % 05/16/2023 11:13 PM HYDROGEOLOGIST [facility] MCV 90 78 - 100 fL 05/16/2023 11:13 PM HYDROGEOLOGIST [facility] MCH 31.2 26.5 - 33.0 pg 05/16/2023 11:13 PM HYDROGEOLOGIST [facility] MCHC 34.7 31.5 - 36.5 g/dL 05/16/2023 11:13 PM HYDROGEOLOGIST [facility] RDW 12.3 10.0 - 15.0 % 05/16/2023 11:13 PM HYDROGEOLOGIST [facility] Platelet Count 319 150 - 450 10e3/uL 05/16/2023 11:13 PM HYDROGEOLOGIST [facility] % Neutrophils 58 % 05/16/2023 11:13 PM HYDROGEOLOGIST [facility] % Lymphocytes 31 % 05/16/2023 11:13 PM HYDROGEOLOGIST [facility] % Monocytes 8 % 05/16/2023 11:13 PM HYDROGEOLOGIST [facility] % Eosinophils 3 % 05/16/2023 11:13 PM HYDROGEOLOGIST [facility] % Basophils 0 % 05/16/2023 11:13 PM HYDROGEOLOGIST [facility] % Immature Granulocytes 0 % 05/16/2023 11:13 PM HYDROGEOLOGIST [facility] NRBCs per 100 WBC 0 <1 /100 024 11:13 PM HYDROGEOLOGIST [facility] Absolute Neutrophils 3.5 1.6 - 8.3 10e3/uL 05/16/2023 11:13 PM HYDROGEOLOGIST [facility] Absolute Lymphocytes 1.8 0.8 - 5.3 10e3/uL 05/16/2023 11:13 PM HYDROGEOLOGIST [facility] Absolute Monocytes 0.5 0.0 - 1.3 10e3/uL 05/16/2023 11:13 PM HYDROGEOLOGIST [facility] Absolute Eosinophils 0.2 0.0 - 0.7 10e3/uL 05/16/2023 11:13 PM HYDROGEOLOGIST [facility] Absolute Basophils 0.0 0.0 - 0.2 10e3/uL 05/16/2023 11:13 PM HYDROGEOLOGIST [facility] Absolute Immature Granulocytes 0.0 <=0.4 10e3/uL 05/16/2023 11:13 PM HYDROGEOLOGIST [facility] Absolute NRBCs 0.0 10e3/uL 05/16/2023 11:13 PM HYDROGEOLOGIST [facility] Blood BLOOD SPECIMEN / Unknown Venipuncture / Unknown 05/16/2023 11:01 PM HYDROGEOLOGIST 05/16/2023 11:11 PM HYDROGEOLOGIST Tiarra Meléndez DO LAB - BLOOD ORDERA BLES [facility] Acute Care Lab [address] Lab (1st floor, no room number) [place] [id number], [facility] [place] [phone] * Salicylate level (05/16/2023 11:01 PM HYDROGEOLOGIST) Salicylate <0.3 mg/dL 05/17/2023 12:01 AM HYDROGEOLOGIST [facility] Comment: Salicylate Reference Range Therapeutic: ? 3-10 mg/dL Anti inflammatory: 15-30 mg/dL Blood BLOOD SPECIMEN / Unknown Venipuncture / Unknown 05/16/2023 11:01 PM HYDROGEOLOGIST 05/16/2023 11:11 PM HYDROGEOLOGIST Tiarra Meléndez DO LAB - BLOOD ORDERA BLES [facility] Acute Care Lab [address] Lab (1st floor, no room number) [place] [address], [facility] [place] [phone] * Magnesium (05/16/2023 11:01 PM HYDROGEOLOGIST) Magnesium 1.9 1.7 - 2.3 mg/dL 05/16/2023 11:28 PM HYDROGEOLOGIST [facility] Blood BLOOD SPECIMEN / Unknown Venipuncture / Unknown 05/16/2023 11:01 PM HYDROGEOLOGIST 05/16/2023 11:11 PM HYDROGEOLOGIST Tiarragallito Meléndez DO LAB - BLOOD ORDERA BLES Performing Organization Address [facility]/ZIP Co de Phone Number [facility] Care Lab [address] Lab (1st floor, no room number) [place] [address], [facility] [place] [phone] * HCG QUALitative (blood) (05/16/2023 11:01 PM HYDROGEOLOGIST) hCG Serum Qualitative Negative Negative ROHAN 05/17/2023 5:46 AM HYDROGEOLOGIST LABORATORY Comment:This test is for scr eening purposes. Results should be interpreted along with the clinical picture. Confirmation testing is available if warranted by ordering [id number], HCG Quantitative . Blood BLOOD SPECIMEN / Unknown Venipuncture / Unknown 05/16/2023 11:01 PM HYDROGEOLOGIST 05/16/2023 11:11 PM HYDROGEOLOGIST Tiarra E Meléndez LAB - BLOOD ORDERA BLES Performing Organization Address [facility]/ZIP Co de Phone Number [facility] Care [facility] [address] Lab (1st floor, no room number) [place] [address], [facility] [place] [phone] * (ABNORMAL) Comprehensive metabolic panel (05/16/2023 11:01 PM HYDROGEOLOGIST) Pathologist [facility] Sodium 141 135 - 145 mmol/L 05/16/2023 11:28 PM HYDROGEOLOGIST [facility] Comment:Reference intervals for this test were updated on 12/24/2022 to more accurately reflect our healthy population. There may be differences in the flagging of prior results with similar values performed with this method. Interpretation of those prior results can be made in the context of the updated reference intervals. Potassium 4.2 3.4 - 5.3 mmol/L 05/16/2023 11:28 PM HYDROGEOLOGIST LABORATORY Carbon Dioxide (CO2) 26 22 - 29 mmol/L 05/16/2023 11:28 PM HYDROGEOLOGIST LABORATORY Anion Gap 12 7 - 15 mmol/L 05/16/2023 11:28 PM [facility] Urea Nitrogen 7.9 6.0 - 20.0 mg/dL 05/16/2023 11:28 PM [facility] Creatinine 0.66 0.51 - 0.95 mg/dL 05/16/2023 11:28 PM [facility] GFR Estimate >90 >60 mL/min/1. 73m2 05/16/2023 11:28 PM HYDROGEOLOGIST LABORATORY Calcium 9.7 8.6 - 10.0 mg/dL 05/16/2023 11:28 PM [facility] Chloride 103 98 - 107 mmol/L 05/16/2023 11:28 PM [facility] Glucose 96 70 - 99 mg/dL 05/16/2023 11:28 PM [facility] Alkaline Phosphatase 56 40 - 150 U/L 05/16/2023 11:28 PM [facility] Comment:Reference intervals for this test were updated on 02/11/2023 to more accurately reflect our healthy population. There may be differences in the flagging of prior results with similar values performed with this method. Interpretation of those prior results can be made in the context of the updated reference intervals. AST 39 0 - 45 U/L 05/16/2023 11:28 PM [facility] Comment:Reference intervals for this test were updated on 09/09/2022 to more accurately reflect our healthy population. There may be differences in the flagging of prior results with similar values performed with this method. Interpretation of those prior results can be made in the context of the updated reference intervals. ALT 83(H) 0 - 50 U/L 05/16/2023 11:28 PM [facility] Comment:Reference intervals for this test were updated on 09/09/2022 to more accurately reflect our healthy population. There may be differences in the flagging of prior results with similar values performed with this method. Interpretation of those prior results can be made in the context of the updated reference intervals. Protein Total 7.9 6.4 - 8.3 g/dL 05/16/2023 11:28 PM [facility] Albumin 4.6 3.5 - 5.2 g/dL 05/16/2023 11:28 PM [facility] Bilirubin Total 0.3 <=1.2 mg/dL 05/16/2023 11:28 PM [facility] Blood BLOOD SPECIMEN / Unknown Venipuncture / Unknown 05/16/2023 11:01 PM HYDROGEOLOGIST 05/16/2023 11:11 PM HYDROGEOLOGIST Tiarra Meléndez DO LAB - BLOOD ORDERA BLES Performing Organization Address City/[facility]/ZIP Co de Phone Number [facility] Lab [address] Lab (1st floor, no room number) [place] [address], [facility] [place] [phone] * Alcohol level blood (05/16/2023 11:01 PM HYDROGEOLOGIST) Alcohol ethyl <0.01 <=0.01 g/dL 05/16/2023 11:28 PM HYDROGEOLOGIST LABORATORY Blood BLOOD SPECIMEN / Unknown Venipuncture / Unknown 05/16/2023 11:01 PM HYDROGEOLOGIST 05/16/2023 11:11 PM HYDROGEOLOGIST Tiarra Meléndez DO LAB - BLOOD ORDERA BLES Performing Organization Address [facility]/ZIP Co de Phone Number [facility] [address] Lab (1st floor, no room number) [place] [address], [facility] [place] [phone] * (ABNORMAL) Acetaminophen level (05/16/2023 11:01 PM HYDROGEOLOGIST) Acetaminophen <5.0(L) 10.0 - 30.0 ug/mL 05/17/2023 12:01 AM HYDROGEOLOGIST LABORATORY Blood BLOOD SPECIMEN / Unknown Venipuncture / Unknown 05/16/2023 11:01 PM HYDROGEOLOGIST 05/16/2023 11:11 PM HYDROGEOLOGIST Tiarra Meléndez DO LAB - BLOOD ORDERA BLES Performing Organization Address City/[facility]/ZIP Co de Phone Number [facility] [address] Lab (1st floor, no room number) [place] [address], [facility] [place] [phone] * HIV 1 and 2 Antibody (12/30/2012 6:35 AM CDT) HIV 1&2 Antibody Negative NEG [facility] Blood specimen (specimen) 12/30/2012 6:35 AM CDT 12/30/2012 6:38 AM CDT Deen[place]hit Pena Sofia Ye 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 [employer]ILER LAB - BLOOD ORDERABLES [facility]CRO[facility] * ELECTROCARDIOGRAM, COMPLETE (06/10/2000) Fernando Yates MD EKG TECHNICAL BFP INTERNAL from Last 3 Months or Most Recently Relevant to Health Maintenance Advance Directives For more information, please contact: [phone] * Full Code (Latest Code Status on File) Date Activated Date Inactivated Comments 05/17/2023 1:58 PM 05/20/2023 1:48 PM All basic an d advanced life-sustaining interventions are performed as appropriate Question Answer Comments Code status determined by: Unable to dis cuss and no AD/POLST on file; continue PREVIOUSLY ORDERED code status * Full Code Date Activated Date Inactivated Comments 11/05/2016 3:30 AM 11/12/2016 4:43 PM * Full Code Date Activated Date Inactivated Comments 01/25/2016 10:50 PM 02/01/2016 4:01 PM * Full Code Date Activated Date Inactivated Comments 07/18/2014 3:28 PM 07/26/2014 4:47 PM * Full Code Date Activated Date Inactivated Comments 07/18/2014 12:30 PM 07/18/2014 3:28 PM Care Teams Therapeutic Mentor Relationship Specialty Start Date End Date Kelli Hughes APRN [employer]ER PCP - Mental Health/Behavioral Medicine Psychiatry 11/11/16 [place] [address] [place] [address] PCP - General 02/15/22
--- OUTSIDE RECORDS SUMMARY | 2023-07-15 19:37 | XMS_ITS | Referral Summary ---
Author Name Unknown Organization [place] Address [address] [place] [address]. [place] [address] Care Team Providers Care Cement Sprayer Helper Name Role Phone Anthony Hughesle Juliethmaude KAMN KARATE INSTRUCTOR Unavailable [phone] Tahir Ronquillo MD Primary Care Provider [phone] Encounters Date Type Department Care Team Description 05/17/2023 12:53 PM CRANE SERVICE TECHNICIAN - 05/20/2023 11:48 AM CRANE SERVICE TECHNICIAN Hospital Encounter [facility] [address] [place] [phone] Maryjane Bar MD Simon, John, MD John, Florence Simon, MD Parkinson, Daniel Y, MD Major depressive disorder, recurrent severe without psychotic features (H) (Primary Dx) Discharge Disposition: Home or Self Care 05/17/2023 Telephone [facility] Behavioral Health Intake [address] [place] [phone] Jerome, Behavioral MD [place] 05/17/2023 Telephone [facility] Behavioral Health Intake [address] [place] [phone] Generic, Behavioral MD [place] MH/CD Inpatient 05/16/2023 10:46 PM CRANE SERVICE TECHNICIAN - 05/17/2023 12:25 PM CRANE SERVICE TECHNICIAN Emergency [facility] Emergency Dept [address] [place] [phone] MeléndezTiarra booker DO Matthews, Jeremiah R, MD Intentional drug overdose, initial encounter (H); Suicide attempt (H) Discharge Disposition: Psychiatric Hospital 05/16/2023 Travel from Last 3 Months Allergies Active Allergy Reactions Criticality Noted Date Comments [place] Blisters Medium 05/17/2023 Oral blisters Coconut (Cocos [...] automated process. Provider to review and confirm.) Immunizations Name Administration Dates Next Due Comvax [...] Comments Blood Pressure 114/64 05/20/2023 8:00 AM CRANE SERVICE TECHNICIAN Pulse 76 05/20/2023 8:00 AM CRANE SERVICE TECHNICIAN Temperature 36.6 ??C (97.8 ??F) 05/20/2023 8:00 AM CS T Respiratory Rate 16 05/20/2023 8:00 AM CRANE SERVICE TECHNICIAN Oxygen Saturation 100% 05/20/2023 8:00 AM CRANE SERVICE TECHNICIAN Inhaled Oxygen Concentration - - Weight 62 kg (136 lb 11.2 oz) 05/17/2023 1:00 PM CRANE SERVICE TECHNICIAN Height 162.6 cm (5' 4) 05/17/2023 1:00 PM CRANE SERVICE TECHNICIAN Body Mass Index 23.46 05/17/2023 1:00 PM CRANE SERVICE TECHNICIAN Plan of Treatment Not on file Procedures Procedure Name Priority Date/Time Associated Diagnosis Comments URINE DRUG SCREEN STAT 05/16/2023 11: 14 PM CRANE SERVICE TECHNICIAN URINE DRUG SCREEN PANEL STAT 05/16/2023 11:14 PM CRANE SERVICE TECHNICIAN EKG 12-LEAD, TRACING ONLY STAT 05/16/2023 11:03 PM CRANE SERVICE TECHNICIAN CBC WITH PLATELETS & DIFFERENTIAL STAT 05/16/2023 11:01 PM CRANE SERVICE TECHNICIAN CBC WITH PLATELETS AND DIFFERENTIAL STAT 05/16/2023 11:01 PM CRANE SERVICE TECHNICIAN SALICYLATE LEVEL STAT 05/16/2023 11:0 1 PM CRANE SERVICE TECHNICIAN ACETAMINOPHEN LEVEL STAT 05/16/2023 1 1:01 PM CRANE SERVICE TECHNICIAN ETHYL ALCOHOL LEVEL STAT 05/16/2023 1 1:01 PM CRANE SERVICE TECHNICIAN MAGNESIUM STAT 05/16/2023 11:01 PM CRANE SERVICE TECHNICIAN HCG QUALITATIVE STAT 05/16/2023 11:01 PM CRANE SERVICE TECHNICIAN COMPREHENSIVE METABOLIC PANEL STAT 05/16/2023 11:01 PM CRANE SERVICE TECHNICIAN HIV 1 AND 2 ANTIBODY (QUEST) Routine 12/30/2012 6:35 AM CDT ZZC ELECTROCARDIOGRAM, COMP W/READ Routine 06/10/2000 Preop Exam Other Specified from Last 3 Months or Most Recently Relevant to Health Maintenance Results * Urine Drug Screen Panel (05/16/2023 11:14 PM CRANE SERVICE TECHNICIAN) [facility] Amphetamines Urine Screen Negative Screen Negative 05/16/2023 11:45 PM CRANE SERVICE TECHNICIAN LABORATORY Comment:Cutoff for a negativ e amphetamine is less than 500 ng/mL. Barbituates Urine Screen Negative Screen Negative 05/16/2023 11:45 PM CRANE SERVICE TECHNICIAN [facility] LABORAT[facility] Comment:Cutoff for a negativ e barbiturate is less than 200 ng/mL. Benzodiazepine Urine Screen Negative Screen Negative 05/16/2023 11:45 PM CRANE SERVICE TECHNICIAN LABORATORY Comment:Cutoff for a negativ e benzodiazepine is less than 100 ng/mL. Cannabinoids Urine Screen Negative Screen Negative 05/16/2023 11:45 PM CRANE SERVICE TECHNICIAN [facility] Comment:Cutoff for a negativ e cannabinoid is less than 50 ng/mL. Cocaine Urine Screen Negative Screen Negative 05/16/2023 11:45 PM CRANE SERVICE TECHNICIAN [facility] Comment:Cutoff for a negativ e cocaine is less than 300 ng/mL. Fentanyl Qual Urine Screen Negative Screen Negative 05/16/2023 11:45 PM CRANE SERVICE TECHNICIAN [facility] Comment:Cutoff for negative fentanyl is less than 5 ng/mL. Opiates Urine Screen Negative Screen Negative 05/16/2023 11:45 PM CRANE SERVICE TECHNICIAN [facility] Comment:Cutoff for a negativ e opiate is less than 300 ng/mL. PCP Urine Screen Negative Screen Negative 05/16/2023 11:45 PM CRANE SERVICE TECHNICIAN [facility]AT[facility] Comment:Cutoff for a negativ e PCP is less than 25 ng/mL. Urine MID-STREAM URINE SPECIMEN / Unknown Non-blood Collection / Unknown 05/16/2023 11:14 PM CRANE SERVICE TECHNICIAN 05/16/2023 11:22 PM CRANE SERVICE TECHNICIAN Tiarra Meléndez DO LAB - URINE ORDERA BLES [facility] Acute Care Lab [address] Lab (1st floor, no room number) [place] [address] [phone] * EKG 12 lead (05/16/2023 11:03 PM CRANE SERVICE TECHNICIAN) Systolic Blood Pressure mmHg RADIOLOGY RESULTS Diastolic Blood Pressure mmHg RADIOLOGY RESULTS Ventricular Rate 70 BPM RAD IOLOGY RESULTS Atrial Rate 70 BPM RADIOLOG Y RESULTS NJ Interval 134 ms RADIOLOG Y RESULTS QRS Duration 88 ms RADIOLO GY RESULTS QT 418 ms RADIOLOGY RESULTS QTc 451 ms RADIOLOGY RESULTS P Lawrence 43 degrees RADIOLOGY RESULTS R AXIS 68 degrees RADIOLOGY RESULTS T Lawrence 44 degrees RADIOLOGY RESULTS Interpretation ECG Sinus rhythm Normal ECG When compared with ECG of 01-DEC-2021 07:17, No significant change was found Confirmed by - EMERGENCY ROOM, PHYSICIAN ([id number]), newspaper or periodical editor BO RAMIREZ ([id number]) on 05/18/2023 11:45:54 AM RADIOLOGY RESULTS 05/16/2023 11:0 3 PM CRANE SERVICE TECHNICIAN 05/18/2023 11:45 AM CRANE SERVICE TECHNICIAN Tiarra Meléndez DO ECG ORDERABLES RADIOLOGY RESULTS * CBC with platelets and differential (05/16/2023 11:01 PM CRANE SERVICE TECHNICIAN) WBC Count 6.0 4.0 - 11.0 10e3/uL 05/16/2023 11:13 PM CRANE SERVICE TECHNICIAN [facility] LAB[facility]AT[facility] RBC Count 4.62 3.80 - 5.20 10e6/uL 05/16/2023 11:13 PM CRANE SERVICE TECHNICIAN [facility] Hemoglobin 14.4 11.7 - 15.7 g/dL 05/16/2023 11:13 PM CRANE SERVICE TECHNICIAN [facility] Hematocrit 41.5 35.0 - 47.0 % 05/16/2023 11:13 PM CRANE SERVICE TECHNICIAN [facility] MCV 90 78 - 100 fL 05/16/2023 11:13 PM CRANE SERVICE TECHNICIAN [facility] MCH 31.2 26.5 - 33.0 pg 05/16/2023 11:13 PM CRANE SERVICE TECHNICIAN [facility] MCHC 34.7 31.5 - 36.5 g/dL 05/16/2023 11:13 PM CRANE SERVICE TECHNICIAN [facility] RDW 12.3 10.0 - 15.0 % 05/16/2023 11:13 PM CRANE SERVICE TECHNICIAN [facility] Platelet Count 319 150 - 450 10e3/uL 05/16/2023 11:13 PM CRANE SERVICE TECHNICIAN [facility] % Neutrophils 58 % 05/16/2023 11:13 PM CRANE SERVICE TECHNICIAN [facility] % Lymphocytes 31 % 05/16/2023 11:13 PM CRANE SERVICE TECHNICIAN [facility] % Monocytes 8 % 05/16/2023 11:13 PM CRANE SERVICE TECHNICIAN [facility] % Eosinophils 3 % 05/16/2023 11:13 PM CRANE SERVICE TECHNICIAN [facility] % Basophils 0 % 05/16/2023 11:13 PM CRANE SERVICE TECHNICIAN [facility] % Immature Granulocytes 0 % 05/16/2023 11:13 PM CRANE SERVICE TECHNICIAN [facility] NRBCs per 100 WBC 0 <1 /100 024 11:13 PM CRANE SERVICE TECHNICIAN [facility] Absolute Neutrophils 3.5 1.6 - 8.3 10e3/uL 05/16/2023 11:13 PM CRANE SERVICE TECHNICIAN [facility] Absolute Lymphocytes 1.8 0.8 - 5.3 10e3/uL 05/16/2023 11:13 PM CRANE SERVICE TECHNICIAN [facility] Absolute Monocytes 0.5 0.0 - 1.3 10e3/uL 05/16/2023 11:13 PM CRANE SERVICE TECHNICIAN [facility] Absolute Eosinophils 0.2 0.0 - 0.7 10e3/uL 05/16/2023 11:13 PM CRANE SERVICE TECHNICIAN LABORATORY Absolute Basophils 0.0 0.0 - 0.2 10e3/uL 05/16/2023 11:13 PM CRANE SERVICE TECHNICIAN [facility] Absolute Immature Granulocytes 0.0 <=0.4 10e3/uL 05/16/2023 11:13 PM CRANE SERVICE TECHNICIAN [facility]AT[facility] Absolute NRBCs 0.0 10e3/uL 05/16/2023 11:13 PM CRANE SERVICE TECHNICIAN [facility] Blood BLOOD SPECIMEN / Unknown Venipuncture / Unknown 05/16/2023 11:01 PM CRANE SERVICE TECHNICIAN 05/16/2023 11:11 PM CRANE SERVICE TECHNICIAN Tiarra Meléndez DO LAB - BLOOD ORDERA BLES [facility] Acute Care Lab [address] Lab (1st floor, no room number) [place] [address], [facility] [phone] * Salicylate level (05/16/2023 11:01 PM CRANE SERVICE TECHNICIAN) Salicylate <0.3 mg/dL 05/17/2023 12:01 AM CRANE SERVICE TECHNICIAN [facility] LABORATORY Comment: Salicylate Reference Range Therapeutic: ? 3-10 mg/dL Anti inflammatory: 15-30 mg/dL Blood BLOOD SPECIMEN / Unknown Venipuncture / Unknown 05/16/2023 11:01 PM CRANE SERVICE TECHNICIAN 05/16/2023 11:11 PM CRANE SERVICE TECHNICIAN Tiarra Meléndez DO LAB - BLOOD ORDERA BLES [facility] LABORAT[facility] Acute Care Lab [address] Lab (1st floor, no room number) [place] [address], [facility] [phone] * Magnesium (05/16/2023 11:01 PM CRANE SERVICE TECHNICIAN) [facility] Magnesium 1.9 1.7 - 2.3 mg/dL 05/16/2023 11:28 PM CRANE SERVICE TECHNICIAN [facility] LABORATORY Blood BLOOD SPECIMEN / Unknown Venipuncture / Unknown 05/16/2023 11:01 PM CRANE SERVICE TECHNICIAN 05/16/2023 11:11 PM CRANE SERVICE TECHNICIAN Tiarra Meléndez DO LAB - BLOOD ORDERA BLES [facility] Lab [address] Lab (1st floor, no room number) [place] [address], [facility] [phone] * HCG QUALitative (blood) (05/16/2023 11:01 PM CRANE SERVICE TECHNICIAN) [facility] hCG Serum Qualitative Negative Negative ROHAN 05/17/2023 5:46 AM CRANE SERVICE TECHNICIAN [facility] LAB[facility]ATORY Comment:This test is for scr eening purposes. Results should be interpreted along with the clinical picture. Confirmation testing is available if warranted by ordering [id number], HCG Quantitative . Blood BLOOD SPECIMEN / Unknown Venipuncture / Unknown 05/16/2023 11:01 PM CRANE SERVICE TECHNICIAN 05/16/2023 11:11 PM CRANE SERVICE TECHNICIAN Tiarra Meléndez DO LAB - BLOOD ORDERA BLES [facility] Care Lab [address] Lab (1st floor, no room number) [place] [address], [facility] [phone] * (ABNORMAL) Comprehensive metabolic panel (05/16/2023 11:01 PM CRANE SERVICE TECHNICIAN) [facility] Sodium 141 135 - 145 mmol/L 05/16/2023 11:28 PM CRANE SERVICE TECHNICIAN [facility] LABORATORY Comment:Reference intervals for this test were updated on 12/24/2022 to more accurately reflect our healthy population. There may be differences in the flagging of prior results with similar values performed with this method. Interpretation of those prior results can be made in the context of the updated reference intervals. Potassium 4.2 3.4 - 5.3 mmol/L 05/16/2023 11:28 PM [facility] Carbon Dioxide (CO2) 26 22 - 29 mmol/L 05/16/2023 11:28 PM [facility] Anion Gap 12 7 - 15 mmol/L 05/16/2023 11:28 PM [facility] Urea Nitrogen 7.9 6.0 - 20.0 mg/dL 05/16/2023 11:28 PM [facility] Creatinine 0.66 0.51 - 0.95 mg/dL 05/16/2023 11:28 PM [facility] GFR Estimate >90 >60 mL/min/1. 73m2 05/16/2023 11:28 PM [facility] Calcium 9.7 8.6 - 10.0 mg/dL 05/16/2023 11:28 PM [facility] Chloride 103 98 - 107 mmol/L 05/16/2023 11:28 PM [facility] Glucose 96 70 - 99 mg/dL 05/16/2023 11:28 PM [facility] Alkaline Phosphatase 56 40 - 150 U/L 05/16/2023 11:28 PM [facility] Comment:Reference intervals for this test were updated on 02/11/2023 to more accurately reflect our healthy population. There may be differences in the flagging of prior results with similar values performed with this method. Interpretation of those prior results can be made in the context of the updated reference intervals. AST 39 0 - 45 U/L 05/16/2023 11:28 PM [facility] Comment:Reference intervals for this test were updated on 09/09/2022 to more accurately reflect our healthy population. There may be differences in the flagging of prior results with similar values performed with this method. Interpretation of those prior results can be made in the context of the updated reference intervals. ALT 83(H) 0 - 50 U/L 05/16/2023 11:28 PM [facility] Comment:Reference intervals for this test were updated on 09/09/2022 to more accurately reflect our healthy population. There may be differences in the flagging of prior results with similar values performed with this method. Interpretation of those prior results can be made in the context of the updated reference intervals. Protein Total 7.9 6.4 - 8.3 g/dL 05/16/2023 11:28 PM CRANE SERVICE TECHNICIAN [facility] Albumin 4.6 3.5 - 5.2 g/dL 05/16/2023 11:28 PM CRANE SERVICE TECHNICIAN [facility] Bilirubin Total 0.3 <=1.2 mg/dL 05/16/2023 11:28 PM CRANE SERVICE TECHNICIAN [facility] Blood BLOOD SPECIMEN / Unknown Venipuncture / Unknown 05/16/2023 11:01 PM CRANE SERVICE TECHNICIAN 05/16/2023 11:11 PM CRANE SERVICE TECHNICIAN Tiarra Meléndez DO LAB - BLOOD ORDERA BLES [facility] [address] Lab (1st [address], no room number) [place] [phone], [facility] [phone] * Alcohol level blood (05/16/2023 11:01 PM CRANE SERVICE TECHNICIAN) Alcohol ethyl <0.01 <=0.01 g/dL 05/16/2023 11:28 PM CRANE SERVICE TECHNICIAN [facility] Blood BLOOD SPECIMEN / Unknown Venipuncture / Unknown 05/16/2023 11:01 PM CRANE SERVICE TECHNICIAN 05/16/2023 11:11 PM CRANE SERVICE TECHNICIAN Tiarra Meléndez DO LAB - BLOOD ORDERA BLES [facility] Care Lab [address] Lab (1st floor, no room number) [place] [phone], [facility] [phone] * (ABNORMAL) Acetaminophen level (05/16/2023 11:01 PM CRANE SERVICE TECHNICIAN) Acetaminophen <5.0(L) 10.0 - 30.0 ug/mL 05/17/2023 12:01 AM CRANE SERVICE TECHNICIAN [facility] Blood BLOOD SPECIMEN / Unknown Venipuncture / Unknown 05/16/2023 11:01 PM CRANE SERVICE TECHNICIAN 05/16/2023 11:11 PM CRANE SERVICE TECHNICIAN Tiarra Meléndez DO LAB - BLOOD ORDERA BLES [facility] Acute Care Lab [address] Lab (1st floor, no room number) [place] [address], [facility] [phone] * HIV 1 and 2 Antibody (12/30/2012 6:35 AM CDT) HIV 1&2 Antibody Negative [facility] Blood specimen (specimen) 12/30/2012 6:35 AM CDT 12/30/2012 6:38 AM CDT Deena Ye BLUEPRINT MACHINE OPERATOR KARATE INSTRUCTOR LAB - BLOOD ORDERABLES [facility] * ELECTROCARDIOGRAM, COMPLETE (06/10/2000) Fernando Yates MD EKG TECHNICAL BFP INTERNAL from Last 3 Months or Most Recently Relevant to Health Maintenance Advance Directives For more information, please contact: [phone] * Full Code (Latest Code Status on [...] 12:30 PM 07/18/2014 3:28 PM Care Teams Cement Sprayer Helper Relationship Specialty Start Date End Date Kelli Hughes APRN KARATE INSTRUCTOR PCP - Mental Health/Behavioral Medicine Psychiatry 11/11/16 [place] [address] [place] [address] PCP - General 02/15/22
[2023-07-15 19:38] VITALS: BP 114/74; BP 121/86; BP 124/85; PULSE 103; PULSE 84; PULSE 89
--- OUTSIDE RECORDS SUMMARY | 2023-07-15 19:38 | XMS_ITS | Encounter Summary ---
Author Name Unknown Organization [facility] Address [address] [place] [address] Care Team Providers Care Spearer Name Role Phone Teddy Cook MD Primary Care Provider + [phone] Kelli Hughes APRN ANESTHESIOLOGY TECH Primary Care Provid er Teddy Cook MD Primary Care Provider [phone] Kelli Hughes APRN ANESTHESIOLOGY TECH Unavailable + [phone] Junior Dill PA-C Primary Care Provider + [phone] Tahir Ronquillo MD Primary Care Provider [phone] Encounter Details Date Type Department Care Team ([facility] st Contact Info) Description 06/14/2011 Telephone [facility] Behavioral Health Intake [address] [place] [phone] Generic, Behavioral Intake, Social History Tobacco Use Types Packs/Day Years Used Date Smoking Tobacco: Never Smokeless Tobacco: Never Alcohol Use Standard Drinks/Week Comments No 0 (1 standard drink = 0.6 oz pur e alcohol) Sex and Gender Information Value Date Recorded Sex Assigned at Not on file Gender Identity Not on file Sexual Orientation Not on file documented as of this encounter Miscellaneous Notes * Telephone Encounter - Jeremy Virk - 06/14/2011 12:23 PM CDT Message copied by JEREMY VIRK on FriJun 14, 2011 12:23 PM ------ Message from: CHARLENE CAPUTO Created: FriJun 14, 2011 12:18 PM Mario needs more appointtments starting FridayJune 16 through FridayJune 18 documented in this encounter Plan of Treatment Not on file documented as of this encounter Visit Diagnoses Not on filedocumented in this encounter Additional Health Concerns Infection Onset Date Last Indicated Resolved Time Rule Out COVID-19 12/30/2021 12/30/2021 12/30/2021 9:08 PM CDT documented as of this encounter Care Teams Spearer Relationship Specialty Start Date End Date Teddy Cook MD [place] [address] [place] [address] PCP - General Family Practice 04/05/11 05/24/14 Kelli Hughes APRN ANESTHESIOLOGY TECH [place] [address] [place] [address] PCP - General Nurse Practitioner 05/25/14 11/10/16 Teddy Cook MD [place] [address] [place] [address] PCP - General Family Practice 11/11/16 07/27/17 Kelli Hughes APRN ANESTHESIOLOGY TECH [place] [address] [place] [address] PCP - Mental Health/Behavioral Medicine Psychiatry 11/11/16 Junior Dill, PANeelamC [facility] [address] [place] [address] PCP - General Physician Roofer Apprentice 07/28/17 02/14/22 [place] [address] [place] [address] PCP - General 02/15/22 documented as of this encounter
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
--- OUTSIDE RECORDS SUMMARY | 2023-07-15 19:38 | XMS_ITS | Encounter Summary ---
Author Name Unknown Organization [facility] Address [address] [place] [address] Care Team Providers Care Administrative Aide Name Role Phone Anthony Hugheslolis Clancy APRN CHIMNEY BUILDER HELPER Unavailable [phone] Tahir Ronquillo MD Primary Care Provider [phone] Encounter Details Date Type Department Care Team ([facility] Contact Info) Description 05/17/2023 Telephone [facility] Behavioral Health Intake [address] [place] [phone] Generic, Behavioral Intake, Social History Tobacco [...] encounter Miscellaneous Notes * Telephone Encounter - Fozia Ch - 05/17/2023 5:58 AM CST 5:02am - Paged [facility] providers for possible placement to 6A/YA 5:46am - Dr. Albarado accepts pt for [facility] 5:51am - Notified CRN of pt in queue. Call [facility] ED [phone] 6:01am - Notified [facility] ED of pt placement. Gave info to PRESS LEADER and let them know it will be next shift when unit calls for report. Indicia Completed S.R R: Patient Placement to Unit 6A/YA/Yarusso [employer] OF RELIGIOUS STUDIES documented in this encounter Plan of Treatment Not on file documented as of this encounter Visit Diagnoses Not on filedocumented in this encounter Care Teams Administrative Aide Relationship Specialty Start Date End Date Kelli Hughes APRN CNP PCP - Mental Health/Behavioral Medicine Psychiatry 11/11/16 [place] [address] [place] [address] PCP - General 02/15/22 documented as of this encounter
--- OUTSIDE RECORDS SUMMARY | 2023-07-15 19:38 | XMS_ITS | Clinical Summary ---
Author Name Unknown Organization [facility] Address [place], [place] [address] Care Team Providers Care Fleet Service Clerk Name Role Phone Tahir Ronquillo MD Primary Care Provider Allergies Active Allergy Reactions Criticality Noted Date Comments Coconut Oil Rash Medium 02/02/2014 Rash on dermis of throat after eating coconut Grass Pollen Rash Low 02/02/2014 Latex Edema 03/07/2023 Pineapple Hives,Throat Swelling/Closing High 03/07/2023 Tomato Hives,Shortness Of Breath 03/07/2023 Medications Medication Sig Dispensed Refills Start Date End Date Status lamoTRIgine (LAMICTAL) 100 mg tablet Take 100 mg by mouth once daily. 01/17/2023 Active traZODone (DESYREL) 50 mg tablet Take 50 mg by mouth at bedtime if needed. 02/24/2023 Active dextroamphetamine-a mphetamine (AdderalL) 10 mg tablet Take 10 mg by mouth once daily. Active methylPREDNISolone (Medrol, Gregg,) 4 mg tabletIndications:I nfectious mononucleosis without complication, infectious mononucleosis due to unspecified organism Take by mouth as instructed per packaging. 21 Tablet 05/25/2023 Active drospirenone-ethiny l estradioL (MARY) 3-0.02 mg tabletIndications:E ncounter for BCP ( control pills) initial prescription Take 1 Tablet by mouth once daily. Skip 4th week placebo pill on pack 1 and 2, take on third pack. 84 Tablet 1 07/15/2023 Active drospirenone-ethiny l estradioL (MARY) 3-0.02 mg tabletIndications:E ncounter for BCP ( control pills) initial prescription Take 1 Tablet by mouth once daily. Skip 4th week placebo pill on pack 1 and 2, take on third pack. 84 Tablet 1 03/18/2023 4 Discontinue d(Reorder (E-cancel not sent)) Active Problems Problem Noted Date Diagnosed Date Femoroacetabular impingement of right hip 2022 Tear of right acetabular labrum 03/07/2023 Chronic constipation 01/17/2022 Anxiety and depression 01/01/2022 Borderline personality disorder 01/01/2022 Pelvic pain 07/17/2021 PTSD (post-traumatic stress disorder) 04/08/2011 Resolved Problems Problem Noted Date Diagnosed Date Resolved Date IUD check up 07/17/2021 03/18/2023 Pap smear for cervical cancer screening 06/19/2021 03/18/2023 Overview: Plan: Pap due 05/2024 Multidirectional shoulder instability, right 8 08/05/2017 Acute pain of right shoulder 04/29/2017 08/05/2017 Suicide attempt 07/18/2014 05/27/2022 Encounters Date Type Department Care Team Description 07/15/2023 Nurse Triage [facility] [address] [place] [address] Tahir Ronquillo MD Irregular Heart Beat; Neurologic Problem 07/14/2023 Refill [facility] [address] [facility] [place] [address] [place], [place] [id number] Margo Galvez [facility] Refill Request (drospirenone-ethiny l estradioL (MARY) 3-0.02 mg tablet ) 05/25/2023 8:40 AM [employer] Office Visit [facility] [place] [address] [place] [phone] Lachelle Conway PA Throat Problem 05/25/2023 Travel 04/28/2023 Nurse Triage [facility] [address] [place] [address] Tahir Ronquillo MD Dizziness from Last 3 Months Immunizations Name Administration Dates Next Due DTaP 01/16/2005, 1,08/20/2000, 1,04/15/2000,02/12/2000 HIB PRP-T (ActHIB,Hiberix) 03/12/2001 HIB-HepB (Comvax) 03/12/2001 HPV 9 (Gardasil 9) 04/26/2022,11/10/2014 Hepatitis A (Peds) 11/10/2014 Hepatitis A, Unspecified 11/10/2014 Hepatitis B (Peds) 03/12/2001,04/15/2000, 000 Human Papilloma Virus Vaccine 11/10/2014 Inactivated Polio Vaccine 01/16/2005,,04/15/2000, 0 Influenza Virus, Unspecified 04/08/2011 Influenza, Live, Intranasal Laiv3 02/06/2012 MMR 01/16/2005,12/31/2000 Meningococcal Vaccine (Menactra) 07/09/2013 Tdap 06/20/2022,11/14/2012 Varicella Vaccine 11/14/2012,12/31/2000 Social History Tobacco Use Types Packs/Day Years Used Date Smoking Tobacco: Former Cigarettes 2 018 - 11/29/2021 Smokeless Tobacco: Never Tobacco Cessation:Counseling Given: Not Answered Comments:She does vape nicotene, Alcohol Use Standard Drinks/Week Comments No 0 (1 standard drink = 0.6 oz pur e alcohol) PHQ-2 Answer Date Recorded PHQ-2 TOTAL SCORE 0 04/26/2022 Social Connections Answer Date Recorded Frequency of Communication with Friends and Fami ly 4 07/30/2022 Financial Resource Strain Answer Date R ecorded Difficulty of Paying Living Expenses Not on file 07/30/2022 Difficulty of Paying Living Expenses 3 07/30/2022 Food Insecurity Answer Date Recorded Worried About Running Out of Food in the Last Ye ar 2 07/30/2022 Transportation Needs Answer Date Record ed Lack of Transportation (Medical) 1 07/30/2022 Housing Stability Answer Date Recorded Unable to Pay for Housing in the Last Year 2 07/30/2022 Sex and Gender Information Value Date Recorded Sex Assigned at Not on file Gender Identity Not on file Sexual Orientation Not on file Obstetrics History Para Term AB IAB SAB Ectopic Multiple Livin g Live Births 1 0 0 0 0 0 0 0 0 0 0 Date Outcome GA Total Labor Labor/2nd/3rd Weight Sex Delivery Anes PTL Marylu A1 A5 Name Cl in Last Filed Vital Signs Vital Sign Reading Time Taken Comments Blood Pressure 115/64 05/25/2023 8:24 AM [employer] Pulse 95 05/25/2023 8:24 AM [employer] Temperature 38.7 ??C (101.6 ??F) 05/25/2023 8:[address] Respiratory Rate 16 05/25/2023 8:24 AM [employer] Oxygen Saturation 98% 05/25/2023 8:24 AM [employer] Inhaled Oxygen Concentration - - Weight 66.7 kg (147 lb) 04/07/2023 3:06 PM [employer] Height 165.1 cm (5' 5) 06/21/2022 7:47 PM CDT Body Mass Index 24.46 06/21/2022 7:47 PM CDT Plan of Treatment Health Maintenance Due Date Last Done Comments HIV for age 15-65 12/10/2014 Hepatitis C screening for age 18-79 12/10/2017 COVID-19 vaccine series ( season) 2022 Chlamydia for age 16-24 12/25/2022 12/25/2021, 10/05 Depression screening for age 12+ 04/26/2023 04/26/2022, 12/28/2021, 12/28/2021, Additional history exists BMI (ht and wt on same day) for age 18+ 06/22/2023 06/21/2022, 04/26/2022, 04/23/2022, Additional history exists Influenza for age 9-49 11/30/2023 02/06/2012, 2011 Pap test for age 21-65 06/19/2024 06/19/2021 Tetanus booster 06/20/2032 06/20/2022, 11/14/2012 HPV series for age 9-26 Completed 04/26/19 23, 11/10/2014, 11/10/2014 Tdap Completed 06/20/2022, 11/14/2012 Pneumococcal series for age 6-64 Aged Out No longer eligible based on patient's age to complete this topic Procedures Procedure Name Priority Date/Time Associated Diagnosis Comments CWS PATH REVIEW HEMATOLOGY STAT 05/25/2023 9:14 AM [employer] Infectious mononucleosis without complication, infectious mononucleosis due to unspecified organism RED CELL MORPHOLOGY STAT 05/25/2023 9 :14 AM [employer] Infectious mononucleosis without complication, infectious mononucleosis due to unspecified organism PLATELET ESTIMATE STAT 05/25/2023 9:1 4 AM [employer] Infectious mononucleosis without complication, infectious mononucleosis due to unspecified organism MANUAL DIFFERENTIAL STAT 05/25/2023 9 :14 AM [employer] Infectious mononucleosis without complication, infectious mononucleosis due to unspecified organism CBC WITH AUTO DIFFERENTIAL STAT 05/25/2023 9:14 AM [employer] Infectious mononucleosis without complication, infectious mononucleosis due to unspecified organism HETEROPHILE STAT 05/25/2023 9:14 AM [employer] Infectious mononucleosis without complication, infectious mononucleosis due to unspecified organism CBC WITH AUTO DIFFERENTIAL STAT 05/25/2023 9:14 AM [employer] Infectious mononucleosis without complication, infectious mononucleosis due to unspecified organism STREP A PCR STAT 05/25/2023 8:45 AM [employer] Infectious mononucleosis without complication, infectious mononucleosis due to unspecified organism THROAT RAPID STREP ONLY CLINIC STAT 05/25/2023 8:27 AM [employer] Infectious mononucleosis without complication, infectious mononucleosis due to unspecified organism GC CHLAMYDIA TRACH PROBE Routine 12/25/2021 1:07 PM CDT Screen for sexually transmitted diseases TRANSPORTATION ASSOCIATE THIN PREP PAP SCREEN IMAGED Routine 06/19/2021 4:20 PM CDT Screening for malignant neoplasm of cervix from Last 3 Months or Most Recently Relevant to Health Maintenance Results * CWS PATH REVIEW HEMATOLOGY (05/25/2023 9:14 AM [employer]) PATH COMMENT Reviewed 05/28/2023 11:33 AM [employer] [facility] Comment:Reviewed by ABDIRAHMAN on Blood BLOOD SPECIMEN / Unknown Capillary / Unknown 05/25/2023 9:14 AM [employer] 05/25/2023 9:14 AM [employer] Lachelle V[facility]AS LABORAT[facility] [address] [place] [address], * (ABNORMAL) CBC WITH AUTO DIFFERENTIAL (05/25/2023 9:14 AM [employer]) WHITE BLOOD COUNT 23.9(H) 4.5 - 11.0 thou/cu mm 05/25/2023 11:28 AM [employer] [facility] RED BLOOD COUNT 4.28 4.00 - 5.20 mil/cu mm 05/25/2023 11:28 AM [employer] [facility] HEMOGLOBIN 13.2 12.0 - 16.0 g/dL 05/25/2023 11:28 AM [employer] [facility] HEMATOCRIT 37.3 33.0 - 51.0 % 05/25/2023 11:28 AM [employer] [facility] MCV 87 80 - 100 fL 05/25/2023 11:28 AM [employer] [facility] MCH 30.8 26.0 - 34.0 pg 05/25/2023 11:28 AM [employer] [facility] MCHC 35.4 32.0 - 36.0 g/dL 05/25/2023 11:28 AM [employer] [facility] RDW 12.4 11.5 - 15.5 % 05/25/2023 11:28 AM [employer] [facility] PLATELET COUNT 279 140 - 440 thou/cu mm 05/25/2023 11:28 AM [employer] [facility] MPV 9.9 6.5 - 11.0 fL 05/25/2023 11:28 AM [employer] [facility] NRBC 0.0 % 05/25/2023 11:28 AM [employer] [facility] ABS NRBC 0.0 thou /cu mm 05/25/2023 11:28 AM [employer] [facility] Blood BLOOD SPECIMEN / Unknown Capillary / Unknown 05/25/2023 9:14 AM [employer] 05/25/2023 9:14 AM [employer] Lachelle VARGAS HEMATOLOGY Performing Organization Address City/[facility]/ZIP Co de Phone Number [facility] [id number] [place] [address], [place] * RED CELL MORPHOLOGY (05/25/2023 9:14 AM [employer]) RBC COMMENT RBC morphology appears normal RBC morphology appears normal, RBC morphology within normal limits for newborns. 05/25/2023 11:28 AM [employer] [facility] LARGE PLATELETS Present 05/25/2023 11:28 AM [employer] [facility] Blood BLOOD SPECIMEN / Unknown Capillary / Unknown 05/25/2023 9:14 AM [employer] 05/25/2023 9:14 AM [employer] Lachelle VARGAS HEMATOLOGY Performing Organization Address City/[facility]/ZIP Co de Phone Number [facility] [phone] [place] [address], [place] * PLATELET ESTIMATE (05/25/2023 9:14 AM [employer]) PLATELET ESTIMATE Adequate Adequate, No estimate 05/25/2023 11:28 AM [employer] [facility] Blood BLOOD SPECIMEN / Unknown Capillary / Unknown 05/25/2023 9:14 AM [employer] 05/25/2023 9:14 AM [employer] Lachelle VARGAS HEMATOLOGY Performing Organization Address City/[facility]/ZIP Co de Phone Number [facility] [phone] [place] [address], [place] * (ABNORMAL) MANUAL DIFFERENTIAL (05/25/2023 9:14 AM [employer]) % NEUTROPHILS 84.0 % 05/25/2023 11:28 AM [employer] [facility] % LYMPHOCYTES 6.0 % 05/25/2023 11:28 AM [employer] [facility] % MONOCYTES 9.0 % 05/25/2023 11:28 AM [employer] [facility] % EOSINOPHILS 1.0 % 05/25/2023 11:28 AM [employer] [facility] % BASOPHILS 0.0 % 05/25/2023 11:28 AM [employer] [facility] NEUTROPHILS ABSOLUTE 20.1(H) 1.7 - 7.0 thou/cu mm 05/25/2023 11:28 AM [employer] [facility] LYMPHOCYTES ABSOLUTE 1.4 0.9 - 2.9 thou/cu mm 05/25/2023 11:28 AM [employer] [facility] MONOCYTES ABSOLUTE 2.2(H) <0.9 thou/cu mm 05/25/2023 11:28 AM [employer] [facility] EOSINOPHILS ABSOLUTE 0.2 <0.5 thou/cu mm 05/25/2023 11:28 AM [employer] [facility] BASOPHILS ABSOLUTE 0.0 <0.3 thou/cu mm 05/25/2023 11:28 AM [employer] [facility] Blood BLOOD SPECIMEN / Unknown Capillary / Unknown 05/25/2023 9:14 AM [employer] 05/25/2023 9:14 AM [employer] Lachelle VARGAS HEMATOLOGY Performing Organization Address City/[facility]/ZIP Co de Phone Number [facility] [address] [place] [address], * (ABNORMAL) HETEROPHILE (05/25/2023 9:14 AM [employer]) HETEROPHILE Positive(A ) Negative 05/25/2023 9:29 AM [employer] [facility] Blood BLOOD SPECIMEN / Unknown Capillary / Unknown 05/25/2023 9:14 AM [employer] 05/25/2023 9:14 AM [employer] Lachelle VARGAS HEMATOLOGY [facility] [address] [place] [address], [place] * STREP A PCR (05/25/2023 8:45 AM [employer]) GROUP A STREP Negative 05/26/2023 1:31 AM [employer] [facility] Throat SPECIMEN FROM THROAT / Unknown Non-Blood / Unknown 05/25/2023 8:45 AM [employer] 05/25/2023 9:44 AM [employer] Lachelle VARGAS [facility]OLOGY [facility] [address] [place] [address], [place] * THROAT RAPID STREP ONLY CLINIC (05/25/2023 8:27 AM [employer]) THROAT RAPID STREP A ANTIGEN Negative 05/25/2023 8:36 AM [employer] [facility] Throat SPECIMEN FROM THROAT / Unknown Non-Blood / Unknown 05/25/2023 8:27 AM [employer] 05/25/2023 8:28 AM [employer] Lachelle VARGAS MICROBIOLOGY [facility] [address] [place] [address], [place] * GC CHLAMYDIA TRACH PROBE (12/25/2021 1:07 PM CDT) CHLAMYDIA PROBE Negative 12:09 AM CDT [facility] N GONORRHOEAE PROBE Negative 12/26/2021 12:09 AM CDT [facility] Other VAGINAL SWAB / Unknown Non-Blood / Unknown 12/25/2021 1:07 PM CDT 12/25/2021 2:07 PM CDT Ida Alejandro NP MICROBIOLOGY [facility] [address] [place] [address], * TRANSPORTATION ASSOCIATE THIN PREP PAP SCREEN IMAGED (06/19/2021 4:20 PM CDT) Case Report Gynecologic Cytology Report ? Case: [id number] ? Authorizing Provider: ??Camila Camejo MD ??Collected: ? 06/19/2021 1620 ? Ordering Location: ? [facility] ?Received: ?06/19/2021 1703 ? [facility] ? First Screen: ?Radha Peralta ? Specimen: ?TRANSPORTATION ASSOCIATE ThinPrep Vial Screening, Cervical ? 06/29/2021 6:46 PM CDT [facility] INTERPRETATION/ RESULT NEGATIVE FOR INTRAEPITHELIAL LESION OR MALIGNANCY (NIL) (none) 06/29/2021 6:46 PM CDT [facility] IMEN ADEQUACY Satisfactory for evaluation Endocervical component present 06/29/2021 6:46 PM CDT [facility] HPV REQUEST HPV if ASCUS 06/29/2021 6:46 PM CDT [facility] Date of LMP Hormonally Suppressed 06/29/2021 6:46 PM CDT [facility] Last Pap Date never 06/29/2021 6:46 PM CDT [facility] Last Pap Result First Pap/Unknown 6:46 PM CDT [facility] Abnormal Pap or [place] Bx in last 5 years No 06/29/2021 6:46 PM CDT [facility] Menstrual Status Hormonally Suppressed 06/29/2021 6:46 PM CDT [facility] [place] Bx Done Today No 06/29/2021 6:46 PM CDT [facility] Additional Information None given 06/29/2021 6:46 PM CDT [facility] Comment: Cytology is screened at [facility] Central Laboratory - [address] [address] and [facility] - [address] [place] [address] and [facility] - [address] [place] [address] Interpreted at [facility] Central Laboratory - [address], [place] [address] Automated Review Successful 06/29/2021 6:46 PM CDT [facility] Comment:Specimen processed s uccessfully by automated rotary drier feeder device, ThinPrep Imaging System, [employer] Note The pap test is a screening technique, not a diagnostic procedure. It is used primarily to screen for squamous cancers and precursor lesions. Published studies have shown that it is subject to both false negative and false positive results. The pap test should not be used as the sole means to diagnose or exclude pre-malignant and malignant lesions. 06/29/2021 6:46 PM CDT [facility] Other (Cervical) Non-Blood / Unknown 06/19/2021 4:20 PM CDT 06/19/2021 5:03 PM CDT Camila Camejo MD PATHOLOGY/CYTOLO GY [facility] [address] [place] [address], from Last 3 Months or Most Recently Relevant to Health Maintenance Care Teams Fleet Service Clerk Relationship Specialty [place] [address] [place] [address] PCP - General Family Practice 01/01/22
--- OUTSIDE RECORDS SUMMARY | 2023-07-15 19:38 | XMS_ITS | Encounter Summary ---
Author Name Unknown Organization [facility] Address [address] [place] [address] Care Team Providers Care Belt Turner Name Role Phone Kelli Hughes APRN ELECTRIC SWITCH TESTER Primary Care Provid er Teddy Cook MD Primary Care Provider [phone] Kelli Hughes APRN ELECTRIC SWITCH TESTER Unavailable + [phone] Junior Dill PA-C Primary Care Provider [phone] Tahir Ronquillo MD Primary Care Provider [phone] Reason for Visit * Reason Onset Date Comments Outpatient 05/27/2014 Encounter Details Date Type Department Care Team ([facility] Contact Info) Description 05/27/2014 Telephone [facility] Behavioral Health Intake [address] [place] [id number] Generic, Behavioral Intake, Outpatient Social History Tobacco Use Types Packs/Day Years [...] encounter Miscellaneous Notes * Telephone Encounter - Fernando Kimble - 07/25/2014 5:01 PM CDT 07/25/14 Client is on station 7ae. Doctor order for a referral to the Adolescent Partial Program. Pool message to the Adolescent OP MH Program. JT * Telephone Encounter - Ellyn Quispe - 05/27/2014 12:09 PM CST 05-27-14 Order from [facility] ref client to [facility]. Pool message sent. fb RIBUTING CLERK documented in this encounter Plan of Treatment Not on file documented as of this encounter Visit Diagnoses Not on filedocumented in this encounter Additional Health Concerns Infection Onset Date Last Indicated Resolved Time Rule Out COVID-19 12/30/2021 12/30/2021 12/30/2021 9:08 PM CDT documented as of this encounter Care Teams Belt Turner Relationship Specialty Start Date End Date Kelli Hughes APRN ELECTRIC SWITCH TESTER PCP - General Nurse Practitioner 05/25/14 11/10/16 Teddy Cook MD [facility] [address] [place] [address] PCP - General Family Practice 11/11/16 07/27/17 Kelli Hughes APRN ELECTRIC SWITCH TESTER PCP - Mental Health/Behavioral Medicine Psychiatry 11/11/16 Junior Dill, PA-C [facility] [address] [place] [address] PCP - General Physician Costuming Supervisor 07/28/17 02/14/22 [place] [address] [facility] [place] [address] PCP - General 02/15/22 documented as of this encounter
--- OUTSIDE RECORDS SUMMARY | 2023-07-15 19:38 | XMS_ITS | Encounter Summary ---
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 ED and go [facility] for money. She says she is seeing her therapist on Friday. [place] does not want to stay at the hospital. She does not seen the ingestion as significant and says locking her up will do more harm than good. Mario is by all accounts under a great deal of stress and is prone to dysregulation when stressed. She intentionally ingested a large amount of Trazadone earlier tonight due to ongoing stressors, patient is referred to [facility] for stabilization and treatment. Identified Goals and Safety Issues: Stabilization, treatment Overview: All Hsu Father [phone] (P) Laura Hsu Mother [phone] is Khoi [phone] Legal Status: Legal Status at Admission: 72 Hour Hold 72 Hour Hold - Date/Time Initiated: on ROGER currently Psychiatry Consult: no Updated regarding plan of care. Attending physician PRIYANK Parra RELAY TESTER documented in this encounter Plan of Treatment Not on file documented as of this encounter Procedures Procedure Name Priority Date/Time Associated Diagnosis Comments URINE DRUG SCREEN STAT 05/16/2023 11: 14 PM LEAD RELAY TESTER URINE DRUG SCREEN PANEL STAT 05/16/2023 11:14 PM LEAD RELAY TESTER EKG 12-LEAD, TRACING ONLY STAT 05/16/2023 11:03 PM LEAD RELAY TESTER CBC WITH PLATELETS AND DIFFERENTIAL STAT 05/16/2023 11:01 PM LEAD RELAY TESTER CBC WITH PLATELETS & DIFFERENTIAL STAT 05/16/2023 11:01 PM LEAD RELAY TESTER SALICYLATE LEVEL STAT 05/16/2023 11:0 1 PM LEAD RELAY TESTER MAGNESIUM STAT 05/16/2023 11:01 PM LEAD RELAY TESTER HCG QUALITATIVE STAT 05/16/2023 11:01 PM LEAD RELAY TESTER COMPREHENSIVE METABOLIC PANEL STAT 05/16/2023 11:01 PM LEAD RELAY TESTER ETHYL ALCOHOL LEVEL STAT 05/16/2023 1 1:01 PM LEAD RELAY TESTER ACETAMINOPHEN LEVEL STAT 05/16/2023 1 1:01 PM LEAD RELAY TESTER documented in this encounter Results * Urine Drug Screen Panel (05/16/2023 11:14 PM LEAD RELAY TESTER) [facility] Amphetamines Urine Screen Negative Screen Negative 05/16/2023 11:45 PM LEAD RELAY TESTER [facility] Comment:Cutoff for a negativ e amphetamine is less than 500 ng/mL. Barbituates Urine Screen Negative Screen Negative 05/16/2023 11:45 PM LEAD RELAY TESTER [facility] Comment:Cutoff for a negativ e barbiturate is less than 200 ng/mL. Benzodiazepine Urine Screen Negative Screen Negative 05/16/2023 11:45 PM LEAD RELAY TESTER [facility] Comment:Cutoff for a negativ e benzodiazepine is less than 100 ng/mL. Cannabinoids Urine Screen Negative Screen Negative 05/16/2023 11:45 PM LEAD RELAY TESTER [facility] Comment:Cutoff for a negativ e cannabinoid is less than 50 ng/mL. Cocaine Urine Screen Negative Screen Negative 05/16/2023 11:45 PM LEAD RELAY TESTER [facility] Comment:Cutoff for a negativ e cocaine is less than 300 ng/mL. Fentanyl Qual Urine Screen Negative Screen Negative 05/16/2023 11:45 PM LEAD RELAY TESTER [facility] Comment:Cutoff for negative fentanyl is less than 5 ng/mL. Opiates Urine Screen Negative Screen Negative 05/16/2023 11:45 PM LEAD RELAY TESTER [facility] Comment:Cutoff for a negativ e opiate is less than 300 ng/mL. PCP Urine Screen Negative Screen Negative 05/16/2023 11:45 PM LEAD RELAY TESTER LABORATORY Comment:Cutoff for a negativ e PCP is less than 25 ng/mL. Urine MID-STREAM URINE SPECIMEN / Unknown Non-blood Collection / Unknown 05/16/2023 11:14 PM LEAD RELAY TESTER 05/16/2023 11:22 PM LEAD RELAY TESTER Tiarra Meléndez DO LAB - URINE ORDERA BLES LABORATORY [facility] [address] Lab (1st floor, no room number) [place] [address] [phone] * EKG 12 lead (05/16/2023 11:03 PM LEAD RELAY TESTER) Systolic Blood Pressure mmHg RADIOLOGY RESULTS Diastolic Blood Pressure mmHg RADIOLOGY RESULTS Ventricular Rate 70 BPM RAD IOLOGY RESULTS Atrial Rate 70 BPM RADIOLOG Y RESULTS GA Interval 134 ms RADIOLOG Y RESULTS QRS Duration 88 ms RADIOLO GY RESULTS QT 418 ms RADIOLOGY RESULTS QTc 451 ms RADIOLOGY RESULTS P Bladen 43 degrees RADIOLOGY RESULTS R AXIS 68 degrees RADIOLOGY RESULTS T Bladen 44 degrees RADIOLOGY RESULTS Interpretation ECG Sinus rhythm Normal ECG When compared with ECG of 01-DEC-2021 07:17, No significant change was found Confirmed by - EMERGENCY ROOM, PHYSICIAN ([id number]), mapping editor BO RAMIREZ ([id number]) on 05/18/2023 11:45:54 AM RADIOLOGY RESULTS 05/16/2023 11:0 3 PM LEAD RELAY TESTER 05/18/2023 11:45 AM LEAD RELAY TESTER Tiarra Meléndez DO ECG ORDERABLES RADIOLOGY RESULTS * CBC with platelets and differential (05/16/2023 11:01 PM LEAD RELAY TESTER) WBC Count 6.0 4.0 - 11.0 10e3/uL 05/16/2023 11:13 PM LEAD RELAY TESTER LABORATORY RBC Count 4.62 3.80 - 5.20 10e6/uL 05/16/2023 11:13 PM LEAD RELAY TESTER [facility] Hemoglobin 14.4 11.7 - 15.7 g/dL 05/16/2023 11:13 PM LEAD RELAY TESTER [facility] Hematocrit 41.5 35.0 - 47.0 % 05/16/2023 11:13 PM LEAD RELAY TESTER [facility] MCV 90 78 - 100 fL 05/16/2023 11:13 PM LEAD RELAY TESTER [facility] MCH 31.2 26.5 - 33.0 pg 05/16/2023 11:13 PM LEAD RELAY TESTER [facility] MCHC 34.7 31.5 - 36.5 g/dL 05/16/2023 11:13 PM LEAD RELAY TESTER [facility] RDW 12.3 10.0 - 15.0 % 05/16/2023 11:13 PM LEAD RELAY TESTER [facility] Platelet Count 319 150 - 450 10e3/uL 05/16/2023 11:13 PM LEAD RELAY TESTER [facility] % Neutrophils 58 % 05/16/2023 11:13 PM LEAD RELAY TESTER [facility] % Lymphocytes 31 % 05/16/2023 11:13 PM LEAD RELAY TESTER [facility] % Monocytes 8 % 05/16/2023 11:13 PM LEAD RELAY TESTER [facility] % Eosinophils 3 % 05/16/2023 11:13 PM LEAD RELAY TESTER [facility] % Basophils 0 % 05/16/2023 11:13 PM LEAD RELAY TESTER [facility] % Immature Granulocytes 0 % 05/16/2023 11:13 PM LEAD RELAY TESTER [facility] NRBCs per 100 WBC 0 <1 /100 024 11:13 PM LEAD RELAY TESTER [facility] Absolute Neutrophils 3.5 1.6 - 8.3 10e3/uL 05/16/2023 11:13 PM LEAD RELAY TESTER [facility] Absolute Lymphocytes 1.8 0.8 - 5.3 10e3/uL 05/16/2023 11:13 PM LEAD RELAY TESTER [facility] Absolute Monocytes 0.5 0.0 - 1.3 10e3/uL 05/16/2023 11:13 PM LEAD RELAY TESTER [facility] Absolute Eosinophils 0.2 0.0 - 0.7 10e3/uL 05/16/2023 11:13 PM LEAD RELAY TESTER [facility] Absolute Basophils 0.0 0.0 - 0.2 10e3/uL 05/16/2023 11:13 PM LEAD RELAY TESTER [facility] Absolute Immature Granulocytes 0.0 <=0.4 10e3/uL 05/16/2023 11:13 PM LEAD RELAY TESTER [facility] Absolute NRBCs 0.0 10e3/uL 05/16/2023 11:13 PM LEAD RELAY TESTER [facility] Blood BLOOD SPECIMEN / Unknown Venipuncture / Unknown 05/16/2023 11:01 PM LEAD RELAY TESTER 05/16/2023 11:11 PM LEAD RELAY TESTER Tiarra Meléndez DO LAB - BLOOD ORDERA BLES Performing Organization Address City/[facility]/ZIP Co de Phone Number [facility] Acute Care Lab [address] Lab (1st floor, no room number) [place] [phone], [facility] [phone] * Salicylate level (05/16/2023 11:01 PM LEAD RELAY TESTER) Salicylate <0.3 mg/dL 05/17/2023 12:01 AM LEAD RELAY TESTER [facility] Comment: Salicylate Reference Range Therapeutic: ? 3-10 mg/dL Anti inflammatory: 15-30 mg/dL Blood BLOOD SPECIMEN / Unknown Venipuncture / Unknown 05/16/2023 11:01 PM LEAD RELAY TESTER 05/16/2023 11:11 PM LEAD RELAY TESTER Tiarra Meléndez DO LAB - BLOOD ORDERA BLES Performing Organization Address [facility]/ZIP Co de Phone Number [facility] Lab [address] Lab (1st floor, no room number) [place] [address], [facility] [phone] * (ABNORMAL) Acetaminophen level (05/16/2023 11:01 PM LEAD RELAY TESTER) Acetaminophen <5.0(L) 10.0 - 30.0 ug/mL 05/17/2023 12:01 AM LEAD RELAY TESTER [facility] Blood BLOOD SPECIMEN / Unknown Venipuncture / Unknown 05/16/2023 11:01 PM LEAD RELAY TESTER 05/16/2023 11:11 PM LEAD RELAY TESTER Tiarra Meléndez DO LAB - BLOOD ORDERA BLES Performing Organization Address City/[facility]/ZIP Co de Phone Number [facility] Lab [address] Lab (1st floor, no room number) [place] [address], [facility] [phone] * Alcohol level blood (05/16/2023 11:01 PM LEAD RELAY TESTER) Alcohol ethyl <0.01 <=0.01 g/dL 05/16/2023 11:28 PM LEAD RELAY TESTER [facility] Blood BLOOD SPECIMEN / Unknown Venipuncture / Unknown 05/16/2023 11:01 PM LEAD RELAY TESTER 05/16/2023 11:11 PM LEAD RELAY TESTER Tiarra E Rika ELENA LAB - BLOOD ORDERA BLES LABORATORY [facility] Care Lab [address] Lab (1st floor, no room number) [place] [address], [facility] [phone] * Magnesium (05/16/2023 11:01 PM LEAD RELAY TESTER) Pathologist [facility] Magnesium 1.9 1.7 - 2.3 mg/dL 05/16/2023 11:28 PM LEAD RELAY TESTER [facility] Blood BLOOD SPECIMEN / Unknown Venipuncture / Unknown 05/16/2023 11:01 PM LEAD RELAY TESTER 05/16/2023 11:11 PM LEAD RELAY TESTER Tiarra E Rika ELENA LAB - BLOOD ORDERA BLES LAB[facility]AT[facility] Care Lab [address] Lab (1st floor, no room number) [place] [address], [facility] [phone] * HCG QUALitative (blood) (05/16/2023 11:01 PM LEAD RELAY TESTER) Pathologist [facility] hCG Serum Qualitative Negative Negative ROHAN 05/17/2023 5:46 AM LEAD RELAY TESTER [facility] Comment:This test is for scr eening purposes. Results should be interpreted along with the clinical picture. Confirmation testing is available if warranted by ordering [id number], HCG Quantitative . Blood BLOOD SPECIMEN / Unknown Venipuncture / Unknown 05/16/2023 11:01 PM LEAD RELAY TESTER 05/16/2023 11:11 PM LEAD RELAY TESTER Tiarra Meléndez DO LAB - BLOOD ORDERA BLES LABORATORY [facility] Lab [address] Lab (1st floor, no room number) [place] [address], [facility] [phone] * (ABNORMAL) Comprehensive metabolic panel (05/16/2023 11:01 PM LEAD RELAY TESTER) Sodium 141 135 - 145 mmol/L 05/16/2023 11:28 PM [facility] Comment:Reference intervals for this test were updated on 12/24/2022 to more accurately reflect our healthy population. There may be differences in the flagging of prior results with similar values performed with this method. Interpretation of those prior results can be made in the context of the updated reference intervals. Potassium 4.2 3.4 - 5.3 mmol/L 05/16/2023 11:28 PM [facility] Carbon Dioxide (CO2) 26 22 - 29 mmol/L 05/16/2023 11:28 PM [facility] Anion Gap 12 7 - 15 mmol/L 05/16/2023 11:28 PM [facility] Urea Nitrogen 7.9 6.0 - 20.0 mg/dL 05/16/2023 11:28 PM [facility] Creatinine 0.66 0.51 - 0.95 mg/dL 05/16/2023 11:28 PM [facility] GFR Estimate >90 >60 mL/min/1. 73m2 05/16/2023 11:28 PM [facility] Calcium 9.7 8.6 - 10.0 mg/dL 05/16/2023 11:28 PM [facility] Chloride 103 98 - 107 mmol/L 05/16/2023 11:28 PM [facility] Glucose 96 70 - 99 mg/dL 05/16/2023 11:28 PM [facility] Alkaline Phosphatase 56 40 - 150 U/L 05/16/2023 11:28 PM [facility] Comment:Reference intervals for this test were updated on 02/11/2023 to more accurately reflect our healthy population. There may be differences in the flagging of prior results with similar values performed with this method. Interpretation of those prior results can be made in the context of the updated reference intervals. AST 39 0 - 45 U/L 05/16/2023 11:28 PM LEAD RELAY TESTER [facility] Comment:Reference intervals for this test were updated on 09/09/2022 to more accurately reflect our healthy population. There may be differences in the flagging of prior results with similar values performed with this method. Interpretation of those prior results can be made in the context of the updated reference intervals. ALT 83(H) 0 - 50 U/L 05/16/2023 11:28 PM LEAD RELAY TESTER [facility] Comment:Reference intervals for this test were updated on 09/09/2022 to more accurately reflect our healthy population. There may be differences in the flagging of prior results with similar values performed with this method. Interpretation of those prior results can be made in the context of the updated reference intervals. Protein Total 7.9 6.4 - 8.3 g/dL 05/16/2023 11:28 PM LEAD RELAY TESTER [facility] Albumin 4.6 3.5 - 5.2 g/dL 05/16/2023 11:28 PM LEAD RELAY TESTER [facility] Bilirubin Total 0.3 <=1.2 mg/dL 05/16/2023 11:28 PM LEAD RELAY TESTER [facility] Blood BLOOD SPECIMEN / Unknown Venipuncture / Unknown 05/16/2023 11:01 PM LEAD RELAY TESTER 05/16/2023 11:11 PM LEAD RELAY TESTER Tiarra Meléndez DO LAB - BLOOD ORDERA BLES LABORAT[facility] Lab [address] [facility] Lab (1st floor, no room number) [place] [address], [facility] [phone] documented in this encounter Visit Diagnoses Diagnosis Mood disorder (H24)- Primary Unspecified episodic mood disorder Intentional drug overdose, initial encounter (H) Suicide attempt (H) Suicide and self-inflicted injury by unspecified means documented in this encounter Administered Medications Inactive Administered Medications - up to 3 most recent administrations Medication Order MAR Action Action Date Dose Rate Site OLANZapine zydis (zyPREXA) ODT tab 10 mg 10 mg, Oral, 2 TIMES DAILY PRN, agitation, associated with psychosis or sergio., Starting on 05/17/23 at 0047, Doses should be at least 2 hours apart. With dry hands, peel back foil backing and gently remove tablet. Do not push oral disintegrating tablet through foil backing. Administer immediately on tongue and oral disintegrating tablet dissolves in seconds, then swallow with saliva. Liquid not required. documented in this encounter Active and Recently Administered Medications Times are shown in LEAD RELAY TESTER. PRN Medication Order 05/15/2023 05/16/2023 05/17/2023 OLANZapine zydis (zyPREXA) ODT tab 10 mg 10 mg, Oral, 2 TIMES DAILY PRN, agitation, associated with psychosis or sergio., Starting on 05/17/23 at 0047, Doses should be at least 2 hours apart. With dry hands, peel back foil backing and gently remove tablet. Do not push oral disintegrating tablet through foil backing. Administer immediately on tongue and oral disintegrating tablet dissolves in seconds, then swallow with saliva. Liquid not required. documented in this encounter Care Teams Mental Health Social Worker Relationship Specialty Start Date End Date Kelli Hughes APRN CNP PCP - Mental Health/Behavioral Medicine Psychiatry 11/11/16 [place] [address] [place] [address] PCP - General 02/15/22 documented as of this encounter
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
--- OUTSIDE RECORDS SUMMARY | 2023-07-15 19:38 | XMS_ITS | Clinical Summary ---
Author Name Unknown Organization [facility] Address [address] [place] [address] Care Team Providers Care All Source Collection Manager Name Role Phone Elsewhere, Pcp Primary Care Provider Unavailabl e Source Comments Patient records contain information from all sites at [facility]. For routine questions regarding patient records, call [phone] during business hours, M-F 8:00 AM - 5:00 PM Central Time. Record requests for emergency care only can be directed to [phone] at any time.[facility] Medications Medication Sig Dispensed Refills Start Date End Date Status LORazepam (ATIVAN) 1 mg tablet Take 1 tablet (1 mg total) by mouth 3 (three) times a day as needed for anxiety for up to 2 days. 6 tablet 02/27/2023 Active Active Problems No known active problems Immunizations Name Administration Dates Next Due DTaP (Infanrix, Tripedia) 01/16/2005,,08/20/2000,2000,04/15/2000,02/12/2000 HepB Pediatric/Adolescent 03/12/2001,04/15/2000, 02/12/2000 Hib (PRP-T) (ACTHIB, HIBERIX) 03/12/2001 IPV 01/16/2005, 2,04/15/2000,1999 Influenza Laiv (Nasal) (Discontinued) 02/06/2012 Influenza, Unspecified 04/08/2011 MMR 01/16/2005,12/31/2000 PCV7 (discontinued) 06/22/2001, 1,04/15/2000,1999 SARAVANAN 12/31/2000 Social History Tobacco Use Types Packs/Day Years Used Date Smoking Tobacco: Never Assessed Nutrition Answer Date Recorded Nutrition: EVOO Fat Source Unknown 02/26 Nutrition: Servings of Fruits/Vegetables per Day Not on file 02/26/2023 Dental Answer Date Recorded Dental: Regular Dentist Unknown 02/27/20 Sex and Gender Information Value Date Recorded Sex Assigned at Not on file Gender Identity Not on file Sexual Orientation Not on file Last Filed Vital Signs Vital Sign Reading Time Taken Comments Blood Pressure 139/102 02/26/2023 11:53 AM LOBBY CONCIERGE Pulse 120 02/26/2023 11:53 AM LOBBY CONCIER[employer] Temperature 36.8 ??C (98.2 ??F) 02/26/2023 11:[address] Respiratory Rate 28 02/26/2023 11:53 AM LOBBY CONCIERGE Oxygen Saturation 97% 02/26/2023 11:53 AM LOBBY CONCIERGE Inhaled Oxygen Concentration - - Weight - - Height - - Body Mass Index - - Plan of Treatment Not on file Care Teams All Source Collection Manager Relationship Specialty Start Date End Date Elsewhere, Pcp PCP - General Internal Medicine 02/26/23
--- OUTSIDE RECORDS SUMMARY | 2023-07-15 19:38 | XMS_ITS | Encounter Summary ---
Author Name Unknown Organization [facility] Address [address] [place] [address] Care Team Providers Care Art Museum Aide Name Role Phone Teddy Cook MD Primary Care Provider [phone] Kelli Hughes APRN LOG STACKER OPERATOR Primary Care Provid er Teddy Cook MD Primary Care Provider [phone] Kelli Hughes APRN LOG STACKER OPERATOR Unavailable + [phone] Junior Dill PA-C Primary Care Provider + [phone] Tahir Ronquillo MD Primary Care Provider [phone] Reason for Visit * Reason Onset Date Comments Outpatient 04/30/2011 Encounter Details Date Type Department Care Team ([facility] Contact Info) Description 04/30/2011 Telephone [facility] Behavioral Health Intake [address] [place] [address] [phone] Generic, Behavioral Intake, Outpatient Social History Tobacco [...] encounter Miscellaneous Notes * Telephone Encounter - Bernard Wiggins - 05/20/2011 11:34 AM CST Message copied by BERNARD WIGGINS on FriMay 20, 2011 11:34 AM ------ Message from: CHARLENE CAPUTO Created: FriMay 20, 2011 10:42 AM Mario needs more appointments for Child DayTx starting 05/21. ONATOR * Telephone Encounter - Tara Yoo - 05/15/2011 2:36 PM CST Mental health auth person notified of 05/17 Day OP start. ASIYA ONATOR * Telephone Encounter - Tara Yoo - 05/15/2011 11:56 AM CST Per Doreen from Child OP, she received additional 2 days of Partial 05/14-05/16. Pt will be switchingto Day OP on 05/17. ASIYA ONATOR * Telephone Encounter - Maddi Greene - 05/08/2011 2:26 PM CST Given to Mental health auth person to facilitate authorization and schedule appointments. Maddi Greene ONATOR * Telephone Encounter - Maddi Greene - 05/08/2011 2:26 PM CST Message copied by MADDI GREENE on FriMay 08, 2011 2:26 PM ------ Message from: CHARLENE CAPUTO Created: FriMay 08, 2011 11:02 AM Mario is starting Child Partial Program tomorrow May [address] Marilu Meredith ONATOR * Telephone Encounter - Keith Pham - 05/03/2011 2:41 PM CST Per Nunu Sherman Child iop pt monica to start Part 05/09 with Marilu Meredith Pt has [facility] Nunu was told we can only use clinical that is less then 48 hrs old to cert part. She stated she will do updated eval tu05/07 And contact intake when complete. Keith Pham ONATOR * Telephone Encounter - Maddi Greene - 05/02/2011 12:27 PM CST Appointment scheduled. Maddi Greene ONATOR * Telephone Encounter - Maddi Greeen - 05/02/2011 12:27 PM CST Message copied by MADDI GREENE on FriMay 02, 2011 12:27 PM ------ Message from: CHARLENE CAPUTO Created: FriMay 02, 2011 12:13 PM Mario has an intake assessment tomorrow May 3 @0930 for Child OP ONATOR * Telephone Encounter - Ellyn Quispe - 04/30/2011 3:40 PM CST 04-30-11 [facility]un[facility] Child OP Tx Called, wanted account open. Has Child Day Tx Diag Eval coming up for client. Date unknown. Had been IP Child earlier this Month, but went to [facility]. Checking Insurance. fb 04-30-11 Jyothi done, auth'd Child Day TX Diag Eval. Pool message sent. fb ONATOR documented in this encounter Plan of Treatment Not on file documented as of this encounter Visit Diagnoses Not on filedocumented in this encounter Additional Health Concerns Infection Onset Date Last Indicated Resolved Time Rule Out COVID-19 12/30/2021 12/30/2021 12/30/2021 9:08 PM CDT documented as of this encounter Care Teams Art Museum Aide Relationship Specialty Start Date End Date Teddy Cook MD [facility] [address] [place] [address] PCP - General Family Practice 04/05/11 05/24/14 Kelli Hughes APRN LOG STACKER OPERATOR [place] [id number] [place] [address] PCP - General Nurse Practitioner 05/25/14 11/10/16 Teddy Cook MD [place] [id number] [place] [address] PCP - General Family Practice 11/11/16 07/27/17 Kelli Hughes APRN LOG STACKER OPERATOR [place] [id number] [place] [address] PCP - Mental Health/Behavioral Medicine Psychiatry 11/11/16 Junior Dill, PA-C [facility] [address] [place] [address] PCP - General Physician Branch Store Manager 07/28/17 02/14/22 [place] [address] [facility] [place] [address] PCP - General 02/15/22 documented as of this encounter
--- OUTSIDE RECORDS SUMMARY | 2023-07-15 19:38 | XMS_ITS | Encounter Summary ---
Author Name Unknown Organization [place] Address [address] [facility] [place] [address] Care Team Providers Care Elevator Conductor Name Role Phone Teddy Cook MD Primary Care Provider [phone] Kelli Hughes APRN AUTOMOTIVE PARTS COUNTERPERSON Primary Care Provid er Teddy Cook MD Primary Care Provider [phone] Kelli Hughes APRN AUTOMOTIVE PARTS COUNTERPERSON Unavailable + [phone] Junior Dill PA-C Primary Care Provider + [phone] Tahir Ronquillo MD Primary Care Provider [phone] Encounter Details Date Type Department Care Team (Late st Contact Info) Description 05/09/[address] [facility] Treatment Plan [facility] [address] [place] [address] Marilu Meredith, CONCRETE PSYCHIATRIC [facility] [address] [place] [address] Social History Tobacco Use Types Packs/Day Years Used Date Smoking Tobacco: Never Smokeless Tobacco: Never Alcohol Use Standard Drinks/Week Comments No 0 (1 standard drink = 0.6 oz pur e alcohol) Sex and Gender Information Value Date Recorded Sex Assigned at Not on file Gender Identity Not on file Sexual Orientation Not on file documented as of this encounter Plan of Treatment Scheduled Orders Name Type Priority Associated Diagnoses Orde r Schedule Drug abuse screen 77 urine Lab Routine Enter condition for order release in comments for 100 Occurrences starting 05/09/2011 Rapid strep screen Microbiology Routine Ente r condition for order release in comments for 1 Occurrences starting 05/09/2011 documented as of this encounter Procedures Procedure Name Priority Date/Time Associated Diagnosis Comments TSH Routine 06/03/2011 11:11 AM CLOTHES DRIER REPAIRER T4 FREE Routine 06/03/2011 11:11 AM CLOTHES DRIER REPAIRER T3 TOTAL Routine 06/03/2011 11:11 AM CLOTHES DRIER REPAIRER documented in this encounter Results * T3 total (06/03/2011 11:11 AM CLOTHES DRIER REPAIRER) Pathologist [facility] Triiodothyronine (T3) 236 ng/dL [facility] Blood specimen (specimen) 06/03/2011 11:11 AM CLOTHES DRIER REPAIRER 06/03/2011 11:12 AM CLOTHES DRIER REPAIRER Marilu Meredith DO LAB - BLOOD ORDER ASH[facility]I [facility] * (ABNORMAL) TSH (06/03/2011 11:11 AM CLOTHES DRIER REPAIRER) Pathologist [facility] TSH <0.02(L) 0.4 - 5.0 mU/L [facility] Blood specimen (specimen) 06/03/2011 11:11 AM CLOTHES DRIER REPAIRER 06/03/2011 11:12 AM CLOTHES DRIER REPAIRER Marilu Meredith DO LAB - BLOOD ORDER ASHANTI [facility] * T4 free (06/03/2011 11:11 AM CLOTHES DRIER REPAIRER) Pathologist [facility] T4 Free 1.78 0.70 - 1.85 ng/dL [facility] Blood specimen (specimen) 06/03/2011 11:11 AM CLOTHES DRIER REPAIRER 06/03/2011 11:12 AM CLOTHES DRIER REPAIRER Marilu Maru Meredith DO LAB - BLOOD ORDER ASH[facility]I [facility] documented in this encounter Visit Diagnoses Not on filedocumented in this encounter Additional Health Concerns Infection Onset Date Last Indicated Resolved Time Rule Out COVID-19 12/30/2021 12/30/2021 12/30/2021 9:08 PM CDT documented as of this encounter Care Teams Elevator Conductor Relationship Specialty Start Date End Date Teddy Cook MD [place] [id number] [place] [address] PCP - General Family Practice 04/05/11 05/24/14 Kelli Hughes APRN AUTOMOTIVE PARTS COUNTERPERSON [place] [address] [place] [address] PCP - General Nurse Practitioner 05/25/14 11/10/16 Teddy Cook MD [place] [address] [place] [address] PCP - General Family Practice 11/11/16 07/27/17 Kelli Hughes APRN AUTOMOTIVE PARTS COUNTERPERSON [place] [id number] [place] [address] PCP - Mental Health/Behavioral Medicine Psychiatry 11/11/16 Junior Dill PANeelamC [facility] [address] [place] [address] PCP - General Physician Inside Sales Person 07/28/17 02/14/22 [place] [address] [facility] [place] [address] PCP - General 02/15/22 documented as of this encounter
--- OUTSIDE RECORDS SUMMARY | 2023-07-15 19:38 | XMS_ITS | Encounter Summary ---
Author Name Unknown Organization [facility] Address [address] [place] [address] Care Team Providers Care Trademark Attorney Name Role Phone Kelli Hughes APRN CEMENT CONVEYOR OPERATOR Unavailable +- [phone] Tahir Ronquillo MD Primary Care Provider [phone] Encounter Details Date Type Department Care Team (Latest Contact Info) Description 05/16/2023 Travel Social History Tobacco Use Types Packs/Day Years [...] as of this encounter Plan of Treatment Not on file documented as of this encounter Visit Diagnoses Not on filedocumented in this encounter Care Teams Trademark Attorney Relationship Specialty Start Date End Date Kelli Hughes APRN CEMENT CONVEYOR OPERATOR PCP - Mental Health/Behavioral Medicine Psychiatry 11/11/16 [place] [address] [place] [address] PCP - General 02/15/22 documented as of this encounter
--- OUTSIDE RECORDS SUMMARY | 2023-07-15 19:38 | XMS_ITS | Encounter Summary ---
Author Name Unknown Organization [facility] Address [address] [place] [address] Care Team Providers Care Vamper Name Role Phone Kelli Hughes APRN CLOTH MERCERIZING SUPERVISOR Primary Care Provid er Teddy Cook MD Primary Care Provider [phone] Kelli Hughes APRN CLOTH MERCERIZING SUPERVISOR Unavailable + [phone] Junior Dill PA-C Primary Care Provider + [phone] Tahir Ronquillo MD Primary Care Provider [phone] Reason for Visit * Reason Onset Date Comments Outpatient 11/07/2016 Encounter Details Date Type Department Care Team ([facility] st Contact Info) Description 11/07/2016 Telephone [facility] Behavioral Health Intake [address] [place] [phone] Generic, Behavioral Intake, Outpatient Social History [...] encounter Miscellaneous Notes * Telephone Encounter - Ely Suazo - 11/07/2016 2:23 PM CDT recvd order from Dr Meredith/[facility] with referral to [facility] completed documented in this encounter Plan of Treatment Not on file documented as of this encounter Visit Diagnoses Not on filedocumented in this encounter Additional Health Concerns Infection Onset Date Last Indicated Resolved Time Rule Out COVID-19 12/30/2021 12/30/2021 12/30/2021 9:08 PM CDT documented as of this encounter Care Teams Vamper Relationship Specialty Start Date End Date Kelli Hughes APRN CLOTH MERCERIZING SUPERVISOR PCP - General Nurse Practitioner 05/25/14 11/10/16 Teddy Cook MD [facility] [address] [place] [address] PCP - General Family Practice 11/11/16 07/27/17 Kelli Hughes APRN CLOTH MERCERIZING SUPERVISOR PCP - Mental Health/Behavioral Medicine Psychiatry 11/11/16 Junior Dill, PA-C [facility] [address] [place] [address] PCP - General Physician Air Brush Operator 07/28/17 02/14/22 [place] [address] [place] [address] PCP - General 02/15/22 documented as of this encounter
--- OUTSIDE RECORDS SUMMARY | 2023-07-15 19:38 | XMS_ITS ---
Author Name Unknown Organization [facility] Address [address] [place] [address] Care Team Providers Care Agriculture Manager Name Role Phone Kelli Hughes APRN CUSTOMER ACCOUNT MANAGER Unavailable [phone] Tahir Ronquillo MD Primary Care Provider [phone] Transitional Care Management Status:Closed (Closed) Start date:05/21/2023 Enrollment date:05/22/2023 End date:06/04/2023 Close reason:Goals met Overview SW Continued Care and Services Coordination
--- OUTSIDE RECORDS SUMMARY | 2023-07-15 19:38 | XMS_ITS | Encounter Summary ---
Author Name Unknown Organization [facility] Address [address] [place] [address] Care Team Providers Care Pasta Maker Name Role Phone Teddy Cook MD Primary Care Provider [phone] Kelli Hughes APRN SQUEEGEE OPERATOR Primary Care Provid er Teddy Cook MD Primary Care Provider [phone] Kelli Hughes APRN SQUEEGEE OPERATOR Unavailable + [phone] Junior Dill PA-C Primary Care Provider + [phone] Tahir Ronquillo MD Primary Care Provider [phone] Reason for Visit * Reason Onset Date Comments MH/CD Inpatient 02/01/2014 Encounter Details Date Type Department Care Team ([facility] Contact Info) Description 02/01/2014 Telephone [facility] Behavioral Health Intake [address] [place] [phone] Generic, Behavioral Intake, MH/CD Inpatient Social History [...] encounter Miscellaneous Notes * Telephone Encounter - Kelli Jimenes - 02/02/2014 9:01 AM CST R: BECKI/Masoud (Liz accepting - and she said no additional Dr to Dr tesfaye as she already didone with Dr. Caballero). Notified Nunu on [facility] and [facility] (ph # [phone]) of disposition for pt Previous intake note: S: Dr Caballero, calling from [facility], Pediatrics. # cell [phone]. Unit # [phone] B: 13 yo female, OD on Trazadone, Clonidine, Abilify and thyroid meds last night. Pt took overdose,then went on a walk. Pt returned home and was eating dinner very slowly / oddly and after other family members left the table pt reported to her mother than she had taken an OD on pills. Medically cleared by poison control and medical team. Denies current SI but wrote I want to kill myself on her arm. IP previously at [facility] for behavioral issues. Dx: Reactive attachment disorder. Bipolar, PTSD, ADHD and graves disease. Parents feel pt has been having more mood swings in past 3 weeks and more aggressive behaviors, Per parent report pt has some good periods throughout of the day some days but ptis depressed every day. Mom uncomfortable taking pt home - Dad out of town, Mom is at home with twoother foster care children who also have MH concerns as well. Pt is adopted. The patient's mother states that they adopted the patient at 5. She has been hospitalized at the [facility] and has outpatient care established at [facility]. The patient felt suicidal 3 years ago at which time she spent her 6th grade year at [employer]. The patient states that she had a difficult day today encountered rude students and teachers in school. This prompted her to want to herself, she wrote I want to on her left forearm and took 6 days worth of her daily medications in an attempt to harm herself at 1600. The patient's mother reports that took a week's worth of medications consists of: Clonidine (12 mg), Abilify (60 mg), Methimazole and Trazodone (720 mg). Poison control medically cleared pt, stated she may have sporadic low heart rate but will stabilize. No chemical health concerns. A: Voluntary R: Dr. Hill talked Dr. Caballero at [facility] already and clears her medically for transfer to psych. No available beds on 7a. Not ITC appropriate. Will re-address 02/02/14 or when bed becomes available.Please page Liz when bed is available, although she already said pt is appropriate for 7a. T ATTENDANT * Telephone Encounter - Shiela Newton - 02/01/2014 2:38 PM CST S: Dr Caballero, calling from [facility], Pediatrics. # cell [phone]. Unit # [phone] B: 13 yo female, OD on Trazadone, Clonidine, Abilify and thyroid meds last night. Pt took overdose,then went on a walk. Pt returned home and was eating dinner very slowly / oddly and after other family members left the table pt reported to her mother than she had taken an OD on pills. Medically cleared by poison control and medical team. Denies current SI but wrote I want to kill myself on her arm. IP previously at [facility] for behavioral issues. Dx: Reactive attachment disorder. Bipolar, PTSD, ADHD and graves disease. Parents feel pt has been having more mood swings in past 3 weeks and more aggressive behaviors, Per parent report pt has some good periods throughout of the day some days but ptis depressed every day. Mom uncomfortable taking pt home - Dad out of town, Mom is at home with twoother foster care children who also have MH concerns as well. Pt is adopted. The patient's mother states that they adopted the patient at 5. She has been hospitalized at the [facility] and has outpatient care established at [facility]. The patient felt suicidal 3 years ago at which time she spent her 6th grade year at [employer]. The patient states that she had a difficult day today encountered rude students and teachers in school. This prompted her to want to herself, she wrote I want to on her left forearm and took 6 days worth of her daily medications in an attempt to harm herself at 1600. The patient's mother reports that took a week's worth of medications consists of: Clonidine (12 mg), Abilify (60 mg), Methimazole and Trazodone (720 mg). Poison control medically cleared pt, stated she may have sporadic low heart rate but will stabilize. No chemical health concerns. A: Voluntary R: Dr. Hill talked Dr. Caballero at [facility] already and clears her medically for transfer to [facility]. No available beds on 7a. Not ITC appropriate. Will re-address 02/02/14 or when bed becomes available.Please page Fabiojohny when bed is available, although she already said pt is appropriate for 7a. T ATTENDANT documented in this encounter Plan of Treatment Not on file documented as of this encounter Visit Diagnoses Not on filedocumented in this encounter Additional Health Concerns Infection Onset Date Last Indicated Resolved Time Rule Out COVID-19 12/30/2021 12/30/2021 12/30/2021 9:08 PM CDT documented as of this encounter Care Teams Pasta Maker Relationship Specialty Start Date End Date Teddy Cook MD [place] [address] [place] [address] PCP - General Family Practice 04/05/11 05/24/14 Kelli Hughes APRN SQUEEGEE OPERATOR [place] [address] [place] [address] PCP - General Nurse Practitioner 05/25/14 11/10/16 Teddy Cook MD [place] [id number] [place] [address] PCP - General Family Practice 11/11/16 07/27/17 Kleli Hughes APRN SQUEEGEE OPERATOR [place] [id number] [place] [address] PCP - Mental Health/Behavioral Medicine Psychiatry 11/11/16 Junior Dill, SAGAR [facility] [address] [place] [address] PCP - General Physician Special Inspector 07/28/17 02/14/22 [place] [address] [facility] [place] [address] PCP - General 02/15/22 documented as of this encounter
--- OUTSIDE RECORDS SUMMARY | 2023-07-15 19:38 | XMS_ITS | Encounter Summary ---
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 Rwandan. Patient reported theydo not need the assistance of an shooter's helper. Spiritual considerations include: None noted today Social Functioning (organizations, interests, support system): music, television/movies/videos, reading Current Treatment Providers are: Primary Care Provider: Name/Clinic: Tahir Ronquillo MD - General (2021) Number: [phone] Kelli Hughes APRN [facility] Behavioral Medicine ( 2017) Number: [phone] Medication Management/Psychiatry: Name/Clinic: [facility] in [place]. Number: Therapist: Name/Clinic- [facility] [address] [place] [phone] , Social Service Assessment/Plan: Patient goal I want to start back on my meds that I have missed for several days and I need a break from my CTC follow up Patient will need follow up appointments with her OP providers. Collateral should be obtained as needed Given the pt significant history of SI attempt by means of overdosing. A safety plan should be created with pt surrounding her medication supervision plan after discharge Patient reports it is important for the care team to know I want to leave by Friday or Friday. The food here sucks. They wont let me have ketchup or barbeque. Upon discharge, they anticipate needing nothing set up for them. Patient will have psychiatric assessment and medication management by the psychiatrist. Medicationswill be reviewed and adjusted per DO/MD/COORDINATE MEASURING EQUIPMENT OPERATOR RECORD PRESS TENDER as indicated. The treatment team will continue to assess and stabilize the patient's mental health symptoms with the use of medications and therapeutic programming. Hospital staff will provide a safe environment and a therapeutic milieu. Staff will continue to assess patient as needed. Patient will participate in unit groups and activities. Patientwill receive individual and group support on the unit. CTC will do individual inpatient treatment planning and after care planning. CTC will discuss options for increasing community supports with the patient. CTC will coordinate with outpatient providersand will place referrals to ensure appropriate follow up care is in place. RNATIVE FINANCING SPECIALIST * Plan of Care - Sonia Morales RN - 05/18/2023 6:42 AM CST 05/18/23 0639 Sleep/Rest Sleep/Rest/Relaxation appears asleep;no problem identified Sleep Hygiene Promotion awakenings minimized;noise level reduced Night Time # Hours 7 hours Patient slept without awakening, 7 hours. No concerns from patient at this time. Problem: Sleep Disturbance Goal: Adequate Sleep/Rest Outcome: Progressing Goal Outcome Evaluation: RNATIVE FINANCING SPECIALIST * Care Plan - Radha Monson OT - 05/17/2023 8:20 PM CST Occupational Therapy 05/17/230 Group Therapy Session Group Attendance attended group session Time Session Began 2019 Time Session Ended 2119 Total # Attendees 10 Group Type expressive therapy;task skill Group Topic Covered coping skills/lifestyle management;leisure exploration/use of leisure time;structured socialization Group Session Detail OT: Education on a healthy support system and creative hands-on endeavor (cardmaking) to increase recognition of support system, concentration, focus, attention to task/detail, decision making, problem solving, frustration tolerance, task follow through, coping with stress, healthy leisure engagement, creative expression, and social engagement Patient Response/Contribution cooperative with task;other (see comments) (pleasant; engaged) Patient Participation Detail Pt reported during check-in that ???my , parents, case managers,and therapist?? are people in their support system. Pt sat among peers to complete presented activity and engaged in reciprocal social interactions with peers. Pt worked in a neat and tidy manner tocomplete task. Pt cleaned-up all supplies. Pt verbalized understanding of importance of a support system in a healthy lifestyle. RNATIVE FINANCING SPECIALIST * Plan of Care - Tina Canela RN - 05/17/2023 6:31 PM CST Problem: Suicide Risk Goal: Absence of Self-Harm Outcome: Progressing Goal Outcome Evaluation: BP 103/63 (BP Location: Left arm, Patient Position: Sitting, Cuff Size: Adult Regular) Pulse 73 Temp 97.3 ??F (36.3 ??C) (Temporal) Resp 18 Ht 1.626 m (5' 4) Wt 62 kg (136 lb 11.2 oz) SpO2 97% BMI 23.46 kg/m?? Pt was out in the [employer] social with other pts. Good appetite and fluid intake and ate about 100% of her dinner with snacks. She had a flat blunted affect. Pt was c/o feeling cold . Denied having pain,discomfort and medication side effects. Pt has multiple food allergies and got Epinephrine PRN order. Pt is allergic to latex, pineapple and tomato but pt requested ketchup at dinner time. Pt was cleaned and well groomed and took a shower. Around dinner time pt was agitated and requested to go outto smoke, paged the provider and got nicotine lozenge order it was effective pt was calm around 1999. Voided good and asked when her last BM pt said I only get 3-4 x per month pt said the overdose was not intentional I had a hard time. RNATIVE FINANCING SPECIALIST * Provider Notification - Amisha Krause RN - 05/17/2023 4:30 PM ALTERNATIVE FINANCING SPECIALIST Images from the original note were not included. 05/17/23 1300 Patient Belongings Did you bring any home meds/supplements to the hospital? No Patient Belongings locker Patient Belongings Put in Hospital Secure Location (Security or Locker, etc.) clothing;shoes;glasses;body jewelry;blake/credit card;cell phone/electronics Belongings Search Yes Clothing Search Yes Second Staff Calyn 1 pair of black pants 1 green sweatshirt 1 pair of brown house slippers 1 underwear (strawberry tong) 1 pair of pink footsie socks 1 Vape - light blue colored Lost Nath[employer] brand 1 cell phone in a case The following were sent in security envelope to security 1 blue phone wallet 1 BCBS BLUE health insurance card 1 [place] DL/ID card 1 [place] Direct VISA debit card 1 [facility] Zakada Master debit card A Admission: I am responsible for any personal items that are not sent to the safe or pharmacy. [facility] is not responsible for loss, theft or damage of any property in my possession. Signature: Date: Time: Staff Signature: Date: Time: [facility] Staff person, if patient is unable/unwilling to sign: Signature: Date: Time: Discharge: [facility] has returned all of my personal belongings: Signature: Date: Time: Staff Signature: Date: Time: RNATIVE FINANCING SPECIALIST * Pharmacy-Admission Medication History - Gabby Mary RPH - 05/17/2023 1:20 PM CST Please see Admission Medication History note completed by a pharmacist on 05/17/2023 under [facility]ounter at [facility] for information regarding prior to admission medications. Gabby Mary, PharmD[facility] Pharmacist [facility] RNATIVE FINANCING SPECIALIST documented in this encounter Plan of Treatment Not on file documented as of this encounter Visit Diagnoses Diagnosis Major depressive disorder, recurrent severe without psychotic features (H)- Primary Major depressive disorder, recurrent episode, severe, without mention of psychotic behavior Major depressive disorder, recurrent severe without psychotic features (H) Major depressive disorder, recurrent episode, severe, without mention of psychotic behavior documented in this encounter Admitting Diagnoses Diagnosis Major depressive disorder, recurrent severe without psychotic features (H) Major depressive disorder, recurrent episode, severe, without mention of psychotic behavior documented in this encounter Administered Medications Inactive Administered Medications - up to 3 most recent administrations Medication Order MAR Action Action Date Dose Rate Site acetaminophen (TYLENOL) tablet 650 mg 650 mg, Oral, EVERY 6 HOURS PRN, mild pain, fever, Starting on 05/17/23 at 1358, Maximum acetaminophen dose from all sources = 75 mg/kg/day not to exceed 4 grams/day. $Given 05/19/2023 8:31 PM ALTERNATIVE FINANCING SPECIALIST 650 mg alum & mag hydroxide-simethicone (MAALOX) suspension 30 mL 30 mL, Oral, EVERY 4 HOURS PRN, indigestion, Starting on 05/17/23 at 1358, Shake well. cloNIDine (CATAPRES) tablet 0.1 mg 0.1 mg, Oral, EVERY 6 HOURS PRN, other, SBP>160 or DBP?95, Starting on 05/17/23 at 1358, For 10 doses drospirenone-ethinyl estradiol (MARY) 3-0.02 MG per tablet 1 tablet 1 tablet, Oral, DAILY, First dose on 05/18/23 at 0900 $Given 05/20/2023 8:09 AM ALTERNATIVE FINANCING SPECIALIST 1 tablet $Given 05/19/2023 8:15 AM ALTERNATIVE FINANCING SPECIALIST 1 tablet $Given 05/18/2023 10:16 AM ALTERNATIVE FINANCING SPECIALIST 1 tablet EPINEPHrine (ANY BX GENERIC EQUIV) injection 0.3 mg 0.3 mg, Intramuscular, ONCE PRN, anaphylaxis, Starting on 05/17/23 at 1639, For 1 dose hydrOXYzine HCl (ATARAX) tablet 25 mg 25 mg, Oral, EVERY 4 HOURS PRN, anxiety, Starting on 05/17/23 at 1358, Administer only if there is no other oral medication ordered prn for anxiety. Consider discontinuing if another PRN is ordered for anxiety. lamoTRIgine (LaMICtal) tablet 25 mg 25 mg, Oral, DAILY, First dose on 05/18/23 at 0900 $Given 05/20/2023 8:09 AM ALTERNATIVE FINANCING SPECIALIST 25 mg $Given 05/19/2023 8:15 AM ALTERNATIVE FINANCING SPECIALIST 25 mg $Given 05/18/2023 9:48 AM ALTERNATIVE FINANCING SPECIALIST 25 mg loperamide (IMODIUM) capsule 2 mg 2 mg, Oral, 4 TIMES DAILY PRN, diarrhea, Starting on 05/17/23 at 1358, For 10 doses, maximum: 16 mg/day nicotine (NICORETTE) lozenge 4 mg 4 mg, Buccal, EVERY 1 HOUR PRN, nicotine withdrawal symptoms, Starting on 05/17/23 at 1644, Allow lozenge to dissolve completely. Do Not Bite, Chew, or Swallow. $Given 05/19/2023 7:02 PM ALTERNATIVE FINANCING SPECIALIST 4 mg $Given 05/19/2023 5:06 PM ALTERNATIVE FINANCING SPECIALIST 4 mg $Given 05/19/2023 1:03 PM ALTERNATIVE FINANCING SPECIALIST 4 mg OLANZapine (zyPREXA) injection 10 mg 10 mg, Intramuscular, 3 TIMES DAILY PRN, agitation, if patient unable to take PO., Starting on 05/17/23 at 1358, Doses should be at least 2 hours apart. Olanzapine to be used first line for agitation, unless otherwise specified. At least 1 hour is recommended between administration of IM olanzapine and an IV/IM benzodiazepine to minimize risk of excessive sedation and cardiorespiratory depression. Dissolve the contents of the 10 mg vial using 2.1 mL of Sterile Water for Injection to provide a solution containing 5 mg/mL of olanzapine. Withdraw the ordered dose from vial. Use immediately (within 1 hour) after reconstitution. Discard any unused portion. OLANZapine (zyPREXA) tablet 10 mg 10 mg, Oral, 3 TIMES DAILY PRN, agitation, Starting on 05/17/23 at 1358, Not to exceed 30 mg in 24 hours. Doses should be at least 2 hours apart. Olanzapine to be used first line for agitation, unless otherwise specified. Combined IM and PO doses may significantly increase the risk of orthostatic hypotension at 30 mg per day or higher. ondansetron (ZOFRAN ODT) ODT tab 4 mg 4 mg, Oral, EVERY 6 HOURS PRN, nausea, vomiting, Starting on 05/17/23 at 1358, For 10 doses, With dry hands, peel back foil backing and gently remove tablet. Do not push oral disintegrating tablet through foil backing. Administer immediately on tongue and oral disintegrating tablet dissolves in seconds, then swallow with saliva. Liquid not required. senna-docusate (SENOKOT-S/PERICOLACE) 8.6-50 MG per tablet 1 tablet 1 tablet, Oral, 2 TIMES DAILY PRN, constipation, Starting on 05/17/23 at 1358, Hold for loose stools. documented in this encounter Active and Recently Administered Medications Times are shown in ALTERNATIVE FINANCING SPECIALIST. Scheduled Medication Order 05/18/2023 05/19/2023 05/20/2023 drospirenone-ethinyl estradiol (MARY) 3-0.02 MG per tablet 1 tablet 1 tablet, Oral, DAILY, First dose on 05/18/23 at 0900 1016 ($Given - Provider: Amisha Krause RN) 0815 ($Given - Provider: Arnold Farooq RN) 0809 ($Given - Provider: Michelle Farooq RN) lamoTRIgine (LaMICtal) tablet 25 mg 25 mg, Oral, DAILY, First dose on 05/18/23 at 0900 0948 ($Given - Provider: Amisha Krause RN) 0815 ($Given - Provider: Arnold Farooq RN) 0809 ($Given - Provider: Michelle Farooq RN) PRN Medication Order 05/18/2023 05/19/2023 05/20/2023 acetaminophen (TYLENOL) tablet 650 mg 650 mg, Oral, EVERY 6 HOURS PRN, mild pain, fever, Starting on 05/17/23 at 1358, Maximum acetaminophen dose from all sources = 75 mg/kg/day not to exceed 4 grams/day. 2030 ($Given - Provider: Jimbo Prieto RN) alum & mag hydroxide-simethicone (MAALOX) suspension 30 mL 30 mL, Oral, EVERY 4 HOURS PRN, indigestion, Starting on 05/17/23 at 1358, Shake well. cloNIDine (CATAPRES) tablet 0.1 mg 0.1 mg, Oral, EVERY 6 HOURS PRN, other, SBP>160 or DBP?95, Starting on 05/17/23 at 1358, For 10 doses EPINEPHrine (ANY BX GENERIC EQUIV) injection 0.3 mg 0.3 mg, Intramuscular, ONCE PRN, anaphylaxis, Starting on 05/17/23 at 1639, For 1 dose hydrOXYzine HCl (ATARAX) tablet 25 mg 25 mg, Oral, EVERY 4 HOURS PRN, anxiety, Starting on 05/17/23 at 1358, Administer only if there is no other oral medication ordered prn for anxiety. Consider discontinuing if another PRN is ordered for anxiety. loperamide (IMODIUM) capsule 2 mg 2 mg, Oral, 4 TIMES DAILY PRN, diarrhea, Starting on 05/17/23 at 1358, For 10 doses, maximum: 16 mg/day nicotine (NICORETTE) lozenge 4 mg 4 mg, Buccal, EVERY 1 HOUR PRN, nicotine withdrawal symptoms, Starting on 05/17/23 at 1644, Allow lozenge to dissolve completely. Do Not Bite, Chew, or Swallow. 0858 ($Given - Provider: Amisha Krause RN)1549 ($Given - Provider: David Harris, RN)1743 ($Given - Provider: David Harris, RN)1902 ($Given - Provider: David Harris, RN) 0827 ($Given - Provider: Arnold Farooq RN)1303 ($Given - Provider: Arnold Farooq, TENNILLE)1706 ($Given - Provider: Jimbo Prieto RN)1902 ($Given - Provider: Jimbo Prieto RN) OLANZapine (zyPREXA) injection 10 mg(Linked Group 1) 10 mg, Intramuscular, 3 TIMES DAILY PRN, agitation, if patient unable to take PO., Starting on 05/17/23 at 1358, Doses should be at least 2 hours apart. Olanzapine to be used first line for agitation, unless otherwise specified. At least 1 hour is recommended between administration of IM olanzapine and an IV/IM benzodiazepine to minimize risk of excessive sedation and cardiorespiratory depression. Dissolve the contents of the 10 mg vial using 2.1 mL of Sterile Water for Injection to provide a solution containing 5 mg/mL of olanzapine. Withdraw the ordered dose from vial. Use immediately (within 1 hour) after reconstitution. Discard any unused portion. OLANZapine (zyPREXA) tablet 10 mg(Linked Group 1) 10 mg, Oral, 3 TIMES DAILY PRN, agitation, Starting on 05/17/23 at 1358, Not to exceed 30 mg in 24 hours. Doses should be at least 2 hours apart. Olanzapine to be used first line for agitation, unless otherwise specified. Combined IM and PO doses may significantly increase the risk of orthostatic hypotension at 30 mg per day or higher. ondansetron (ZOFRAN ODT) ODT tab 4 mg 4 mg, Oral, EVERY 6 HOURS PRN, nausea, vomiting, Starting on 05/17/23 at 1358, For 10 doses, With dry hands, peel back foil backing and gently remove tablet. Do not push oral disintegrating tablet through foil backing. Administer immediately on tongue and oral disintegrating tablet dissolves in seconds, then swallow with saliva. Liquid not required. senna-docusate (SENOKOT-S/PERICOLACE) 8.6-50 MG per tablet 1 tablet 1 tablet, Oral, 2 TIMES DAILY PRN, constipation, Starting on 05/17/23 at 1358, Hold for loose stools. Linked Groups Order Group 1: OLANZapine (zyPREXA) tablet 10 mgJump to med 10 mg, Oral, 3 TIMES DAILY PRN, agitation, Starting on 05/17/23 at 1358, Not to exceed 30 mg in 24 hours. Doses should be at least 2 hours apart. Olanzapine to be used first line for agitation, unless otherwise specified. Combined IM and PO doses may significantly increase the risk of orthostatic hypotension at 30 mg per day or higher. Or OLANZapine (zyPREXA) injection 10 mgJump to med 10 mg, Intramuscular, 3 TIMES DAILY PRN, agitation, if patient unable to take PO., Starting on 05/17/23 at 1358, Doses should be at least 2 hours apart. Olanzapine to be used first line for agitation, unless otherwise specified. At least 1 hour is recommended between administration of IM olanzapine and an IV/IM benzodiazepine to minimize risk of excessive sedation and cardiorespiratory depression. Dissolve the contents of the 10 mg vial using 2.1 mL of Sterile Water for Injection to provide a solution containing 5 mg/mL of olanzapine. Withdraw the ordered dose from vial. Use immediately (within 1 hour) after reconstitution. Discard any unused portion. documented in this encounter Care Teams Cotton Agent Relationship Specialty Start Date End Date Kelli Hughes APRN CNP PCP - Mental Health/Behavioral Medicine Psychiatry 11/11/16 [place] [address] [place] [address] PCP - General 02/15/22 documented as of this encounter
--- OUTSIDE RECORDS SUMMARY | 2023-07-15 19:38 | XMS_ITS | Encounter Summary ---
Author Name Unknown Organization [facility] Address [address] [place] [id number] Care Team Providers Care Plastics Repairer Name Role Phone Kleli Hughes APRN BENEFITS ASSISTANT Primary Care Provid er Teddy Cook MD Primary Care Provider [phone] Kelli Hughes APRN BENEFITS ASSISTANT Unavailable + [phone] Junior Dill PA-C Primary Care Provider + [phone] Tahir Ronquillo MD Primary Care Provider [phone] Reason for Visit * Reason Onset Date Comments Eval/Assessment 06/06/2014 spoke with batsheva r, he will call back when he is able to talk more to set up intake meeting. Encounter Details Date Type Department Care Team (Late st Contact Info) Description 06/06/2014 Telephone [facility] Health & Addiction Services [address] [place] [phone] Camila Weaver, TENNILLE Eval/Assessment (spoke with father, he will call back when he is able to talk more to set up intake meeting.) Social History Tobacco Use Types Packs/Day Years [...] documented as of this encounter Care Teams Plastics Repairer Relationship Specialty Start Date End Date Kelli Hughes APRN BENEFITS ASSISTANT PCP - General Nurse Practitioner 05/25/14 11/10/16 Teddy Cook MD [facility] [address] [place] [address] PCP - General Family Practice 11/11/16 07/27/17 Kelli Hughes APRN BENEFITS ASSISTANT PCP - Mental Health/Behavioral Medicine Psychiatry 11/11/16 Junior Dill, PA-C [facility] [address] [place] [address] PCP - General Physician Director Cost 07/28/17 02/14/22 [place] [address] [place] [address] PCP - General 02/15/22 documented as of this encounter
--- OUTSIDE RECORDS SUMMARY | 2023-07-15 19:38 | XMS_ITS | Encounter Summary ---
Author Name Unknown Organization [facility] Address [address] [place] [address] Care Team Providers Care Compliance Program Manager Name Role Phone Kelli Hughes APRN HEATING AND REFRIGERATION INSPECTOR Primary Care Provid er Teddy Cook MD Primary Care Provider [phone] Kelli Hughes APRN HEATING AND REFRIGERATION INSPECTOR Unavailable + [phone] Junior Dill PA-C Primary Care Provider + [phone] Tahir Ronquillo MD Primary Care Provider [phone] Encounter Details Date Type Department Care Team ([facility] st Contact Info) Description 07/18/2014 Telephone [facility] Behavioral Health Intake [address] [place] [phone] Generic, Behavioral Intake, Social History Tobacco [...] encounter Miscellaneous Notes * Telephone Encounter - Val Hernandez - 07/18/2014 9:08 AM CDT S-Pt is referred by medical team on PICU following overdose suicide attempt in the evening of 07/16. B-Pt has hx of 7A with Dr Meredith last fall and Dr Ballard last month. The patient states that she was feeling angry and guilty about herself earlier today and decided to overdose on her medications about three hours prior to ED arrival. Father reports that he always prepares her medication tray for the week on Friday and she took the entire week's worth of medications tonight which included clonidine. Mario Hsu is a 13 year old female with a significant past psychiatric history of depression, PTSD, RAD and ADHD with four previous psychiatric hospitalizations (1 for polysubstance ingestion) who presents with intentional ingestion of a week's worth of her prescribed meds including abilify , trazadone, clonidine, levothyroxine, methimazole and melatonin. As on 07/17 @ 1900: Afebrile; VSS;neuros intact and WDL. Mario is walking around unit,eating, and relating, though minimally, to staff. Slept overnight between cares. Neuro's intact, interacting appropriately. Heart rates in the 50's- 60's. Per Dr Jayne Tenorio pt is medical cleared to transfer to psych. Medically pt has Graves diseas e with hypothyroidism. A-Admit for safety and stabilization. R-Dr Ballard assigned by Dr Hill. Page out to Dr Hammer/Fellow ([phone], [phone]) to call Dr Jayne Tenorio:dial [phone] then [phone] for MD report. MD report completed. Call to TENNILLE Gauthier on PICU with disposition. Admit to 7A / call report to TENNILLE Newton at 1400 / Parent must accompany pt to psych unit to sign consent OR call prior to transfer to give phone consent. Val Hernandez documented in this encounter Plan of Treatment Not on file documented as of this encounter Visit Diagnoses Not on filedocumented in this encounter Additional Health Concerns Infection Onset Date Last Indicated Resolved Time Rule Out COVID-19 12/30/2021 12/30/2021 12/30/2021 9:08 PM CDT documented as of this encounter Care Teams Compliance Program Manager Relationship Specialty Start Date End Date Kelli Hughes APRN HEATING AND REFRIGERATION INSPECTOR PCP - General Nurse Practitioner 05/25/14 11/10/16 Teddy Cook MD [facility] [address] [place] [address] PCP - General Family Practice 11/11/16 07/27/17 Kelli Hughes APRN HEATING AND REFRIGERATION INSPECTOR PCP - Mental Health/Behavioral Medicine Psychiatry 11/11/16 Junior Dill, PANeelamC [facility] [address] [place] [address] PCP - General Physician Patient Sitter 07/28/17 02/14/22 [place] [address] [place] [address] PCP - General 02/15/22 documented as of this encounter
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
--- OUTSIDE RECORDS SUMMARY | 2023-07-15 19:38 | XMS_ITS | Encounter Summary ---
Author Name Unknown Organization [facility] Address [address] [place] [address] Care Team Providers Care Bracelet Maker Novelty Name Role Phone Kelli Hughes APRN MOSS BLEACHER Primary Care Provid er Teddy Cook MD Primary Care Provider [phone] Kelli Hughes APRN MOSS BLEACHER Unavailable + [phone] Junior Dill PA-C Primary Care Provider + [phone] Tahir Ronquillo MD Primary Care Provider [phone] Reason for Visit * Reason Onset Date Comments MH/CD Inpatient 11/05/2016 Encounter Details Date Type Department Care Team (Late st Contact Info) Description 11/05/2016 Telephone [facility] Behavioral Health Intake [address] [place] [id number] Generic, Behavioral Intake, MH/CD Inpatient Social [...] encounter Miscellaneous Notes * Telephone Encounter - Lachelle Corea - 11/05/2016 12:45 AM CDT 11/05/16 S: pt was bib police to [facility]. Pt is having suicidal ideation, thoughts to jump from a bridge. B: pt has hx of ptsd, rad, sib, and previous suicide attempts (most recent 09/2015). Pt was found standing on the bridge she was going to jump from. Stressors for pt are parents who keep yelling at me and making me feel worthless and like I'm a nuisance for bothering everybody. Other stressors incl ude decreased sleep and best friend's sister in the hospital after attempting suicide. Drug screen clean. Med-compliant. A: pt is flat, avoidant, cooperative overall. Parent will give consent. R: admit sami/hoyt documented in this encounter Plan of Treatment Not on file documented as of this encounter Visit Diagnoses Not on filedocumented in this encounter Additional Health Concerns Infection Onset Date Last Indicated Resolved Time Rule Out COVID-19 12/30/2021 12/30/2021 12/30/2021 9:08 PM CDT documented as of this encounter Care Teams Bracelet Maker Novelty Relationship Specialty Start Date End Date Kelli Hughes APRN MOSS BLEACHER PCP - General Nurse Practitioner 05/25/14 11/10/16 Teddy Cook MD [facility] [address] [place] [address] PCP - General Family Practice 11/11/16 07/27/17 Kelli Hughes APRN MOSS BLEACHER PCP - Mental Health/Behavioral Medicine Psychiatry 11/11/16 Junior Dill PA-C [facility] [id number] [place] [address] PCP - General Physician Card Punching Machine Operator 07/28/17 02/14/22 [place] [address] [place] [address] PCP - General 02/15/22 documented as of this encounter
--- OUTSIDE RECORDS SUMMARY | 2023-07-15 19:39 | XMS_ITS | Referral Summary ---
Author Name Unknown Organization [facility] Address [address] [place] [address] Care Team Providers Care Geological Technician Name Role Phone Elsewhere, Pcp Primary Care Provider Unavailabl e Source Comments Patient records contain information from all sites at [facility]. For routine questions regarding patient records, call [phone] during business hours, M-F 8:00 AM - 5:00 PM Central Time. Record requests for emergency care only can be directed to [phone] at any time.[facility] Medications Medication Sig Dispensed Refills Start Date [...] Comments Blood Pressure 139/102 02/26/2023 11:53 AM COMPUTER GRAPHIC ARTIST Pulse 120 02/26/2023 11:53 AM COMPUTER GRAPHIC ARTIST Temperature 36.8 ??C (98.2 ??F) 02/26/2023 11:[address] Respiratory Rate 28 02/26/2023 11:53 AM COMPUTER GRAPHIC ARTIST Oxygen Saturation 97% 02/26/2023 11:53 AM COMPUTER GRAPHIC ARTIST Inhaled Oxygen Concentration - - Weight - - Height - - Body Mass Index - - Plan of Treatment Not on file Care Teams Geological Technician Relationship Specialty Start Date End Date Elsewhere, Pcp PCP - General Internal Medicine 02/26/23
--- OUTSIDE RECORDS SUMMARY | 2023-07-15 19:39 | XMS_ITS ---
Author Name Unknown Organization [facility] Address [address] [place] [address] Care Team Providers Care Print Shop Stenographer Name Role Phone Unavailable Unavailable Unavailable Surgery Details Not on file Complications Check Surgery Details section. Procedure Estimated Blood Loss Check Surgery Details section. Procedure Findings Check Surgery Details section. Procedure Specimens Taken Check Surgery Details section.
[2023-07-15 20:31] LABS: Basophils Absolute Auto 0.02 K/uL (0.00-0.30); Basophils Percent Auto 0.3 % (0.0-3.0); Eosinophils Absolute Auto 0.14 K/uL (0.00-0.50); Eosinophils Percent Auto 2.2 % (0.0-7.0); Hematocrit 41.5 % (33.0-51.0); Hemoglobin* 13.7 gm/dL (12.0-16.0); Lymphocytes Absolute Auto 1.96 K/uL (0.90-2.90); Lymphocytes Percent Auto 30.6 % (20-44); Mean Corpuscular HGB Conc 33 gm/dL (32-36); Mean Corpuscular Hemoglobin 30 pg (26-34); Mean Corpuscular Volume 92 fL (80-100); Neutrophils Absolute Auto 3.65 K/uL (1.7-7.0); Neutrophils Percent Auto 56.9 % (42.0-72.0); Platelet Count* 401 K/uL (140-440); RDW Coefficient of Variation % 12.1 % (11.5-15.5); White Blood Count* 6.41 K/uL (4.50-11.00)
[2023-07-15 20:45] LABS: Slide Review Reflex No
[2023-07-15 20:52] LABS: Chloride* 108 mmol/L (96-114); Potassium* 4.3 mmol/L (3.6-5.1); Sodium* 140 mmol/L (135-149)
[2023-07-15 20:55] LABS: Anion Gap 3 mEq/L (7-15); Carbon Dioxide* 29 mmol/L (20-32); Creatinine* 0.6 mg/dL (0.5-1.5); Est. Creatinine Clearance* 125.92; Estimated Glomerular Filt Rate 129 ml/min
[2023-07-15 20:56] LABS: Blood Urea Nitrogen* 10 mg/dL (5-24); Calcium* 9.2 mg/dL (8.4-10.6); Glucose* 82 mg/dL (60-115); Magnesium* 1.9 mg/dL (1.5-2.6)
[2023-07-15 20:59] LABS: C Reactive Protein* < 0.5 mg/dL (0.5-1.0)
[2023-07-15 21:13] LABS: Bilirubin Urine Negative (Negative); Blood Urine Negative (Negative); Color Urine Yellow (Yellow); Glucose Urine Negative (Negative); Ketones Urine Negative (Negative); Leukocyte Esterase Urine Negative (Negative); Nitrite Urine Negative (Negative); Protein Urine Negative (Negative); Specific Gravity Urine 1.015 (1.000-1.030); Urobilinogen Urine 0.2 (0.2-1.0); pH Urine 7.5 (5.0-8.5)
[2023-07-15 21:17] LABS: Appearance Urine Clear (Clear)
[2023-07-15 21:19] LABS: HCG Qualitative Serum* Negative (Negative)
[2023-07-15 21:20] LABS: Amphetamine Screen Urine POSITIVE (Negative); Barbiturate Screen Urine Negative (Negative); Benzodiazepines Screen Urine Negative (Negative); Cannabinoid Screen Urine Negative (Negative); Cocaine Screen Urine Negative (Negative); Methadone Screen Urine Negative (Negative); Methamphetamines Screen Urine Negative (Negative); Opiate Screen Urine Negative (Negative); Oxycodone Screen Urine Negative (Negative); Phencyclidine Screen Urine Negative (Negative); Tricyclic Antidepressant Urine Negative (Negative)
[2023-07-15 21:51] LABS: RBC Urine 0-2 (0-2); Squamous Epithelial Cell Urine Few (None-Few); WBC Urine 0-2 (0-5)
[2023-07-15 21:53] VITALS: BP 124/68; PULSE 74; RESP 16; TEMP 37.1; O2SAT 99
[2023-07-15 21:54] VITALS: BP 124/68; PULSE 74; RESP 16; TEMP 37.1
== END 2023-07-15 21:54 | disposition home or self-care (01) ==
PROVIDERS: Emergency Provider Family Medicine; PCP Family Medicine
DX: R53.81 Other malaise (principal); M62.838 Other muscle spasm
CPT/HCPCS: 36415; 71045; 80048; 80306; 81001; 83735; 84443; 84703; 85025; 86140; 93005; 99284